=== PATIENT | male | born 1965 | race American Indian/Alaskan Native ===

== ENCOUNTER 2018-02-03 18:36 | Inpatient (IN) | payer OTHER ==
[2018-02-03 19:18] VITALS: BMI 19.1
--- NOTE | 2018-02-03 19:19 | PDOC ---
History of Present Illness <Lori Sanchez - Last Filed: 02/04/18 00:45> - General History Source: Patient, [facility] Records Exam Limitations: Other (poor historian) - History of Present Illness Initial Comments: 02/03/18 19:45 The patient is a 52 year old male with past medical history of diabetes, s/p left AKA, CVA, and depression who arrives to the ED from [facility] after falling out of bed today. The patient is a poor historian and denies any complaints presently. [facility] out of bed. The patient did so today and fell. Subsequently he began complaining of neck pain, but denies any LOC or headache. Patient received dialysis yesterday. <Becca Bustos - Last Filed: 02/04/18 01:48> <Coleman Regalado - Last Filed: 02/04/18 15:59> - General Chief Complaint: Head/Neck problem Stated Complaint: NECK PAIN Past History - Past Medical History Anemia: Yes COPD: No Diabetes: Yes Dialysis: Yes Hypercholesterolemia: Yes Psychiatric Problems: Yes - Suicide/Smoking/Psychosocial Hx Smoking History: Unknown if ever smoked <Lori Sanchez - Last Filed: 02/04/18 00:45> <Becca Bustos - Last Filed: 02/04/18 01:48> <Coleman Regalado - Last Filed: 02/04/18 15:59> - Past Medical History Allergies/Adverse Reactions: Allergies Allergy/AdvReac Type Severity Reaction Status Date / Time No Known Allergies Allergy Verified 02/03/18 20:06 Home Medications: Ambulatory Orders Aspirin 81 mg PO DAILY 02/03/18 Calcium Acetate 1,334 mg PO TID 02/03/18 Ergocalciferol (Vitamin D2) [Vitamin D2] 50,000 unit PO WEEKLY 02/03/18 Escitalopram Oxalate [Lexapro -] 20 mg PO DAILY 02/03/18 Folic Acid 1 mg PO DAILY 02/03/18 Metoprolol Succinate [Toprol Xl] 100 mg PO DAILY 02/03/18 Mirtazapine 15 mg PO DAILY 02/03/18 Pantoprazole Sodium [Protonix] 40 mg PO DAILY 02/03/18 Rosuvastatin [Crestor -] 20 mg PO HS 02/03/18 Thiamine HCl [B-1] 100 mg PO DAILY 02/03/18 Vitamin B Comp W-C [Nephro-Sandra -] 1 tablet PO DAILY 02/03/18 Review of Systems - Review of Systems Able to Perform ROS?: Yes Comments:: 02/03/18 19:45 GENERAL/CONSTITUTIONAL: No fever or chills. No weakness. HEAD, EYES, EARS, NOSE AND THROAT: No change in vision. No ear pain or discharge. No sore throat. CARDIOVASCULAR: No chest pain or shortness of breath. RESPIRATORY: No cough, wheezing, or hemoptysis. GASTROINTESTINAL: No nausea, vomiting, diarrhea or constipation. GENITOURINARY: No dysuria, frequency, or change in urination. MUSCULOSKELETAL: No joint or muscle swelling or pain. No neck or back pain. SKIN: No rash NEUROLOGIC: No headache, vertigo, loss of consciousness, or change in strength/ sensation. ENDOCRINE: No increased thirst. No abnormal weight change. HEMATOLOGIC/LYMPHATIC: No anemia, easy bleeding, or history of blood clots. ALLERGIC/IMMUNOLOGIC: No hives or skin allergy. All Other Systems: Reviewed and Negative <Becca Bustos - Last Filed: 02/04/18 01:48> *Physical Exam - Vital Signs Last Vital Signs Temp Pulse Resp BP Pulse Ox 98.3 F 95 H 18 109/75 100 02/03/18 18:54 02/03/18 18:54 02/03/18 18:54 02/03/18 18:54 02/03/18 18:54 <Lori Sanchez - Last Filed: 02/04/18 00:45> - Vital Signs Last Vital Signs Temp Pulse Resp BP Pulse Ox 98.3 F 95 H 18 109/75 100 02/03/18 18:54 02/03/18 18:54 02/03/18 18:54 02/03/18 18:54 02/03/18 18:54 - Physical Exam Comments: 02/03/18 19:45 GENERAL: Awake, alert, and fully oriented, in no acute distress HEAD: No signs of trauma EYES: PERRLA, EOMI, sclera anicteric, conjunctiva clear ENT: Auricles normal inspection, hearing grossly normal, nares patent, oropharynx clear without exudates. Moist mucosa NECK: Normal ROM, supple, no lymphadenopathy, JVD, or masses LUNGS: Breath sounds equal, clear to auscultation bilaterally. No wheezes, and no crackles HEART: Regular rate and rhythm, normal S1 and S2, no murmurs, rubs or gallops ABDOMEN: Soft, nontender, normoactive bowel sounds. No guarding, no rebound. No masses EXTREMITIES: Fistula in LUE. Left AKA. No pain to RLE. Normal range of motion, no edema. No clubbing or cyanosis. No cords, erythema, or tenderness NEUROLOGICAL: Cranial nerves II through XII grossly intact. Normal speech, normal gait SKIN: Warm, Dry, normal turgor, no rashes or lesions noted. <Becca Bustos - Last Filed: 02/04/18 01:48> - Vital Signs Last Vital Signs Temp Pulse Resp BP Pulse Ox 97.9 F 77 21 89/50 99 02/04/18 14:43 02/04/18 15:15 02/04/18 15:15 02/04/18 15:15 02/04/18 15:15 <Coleman Regalado - Last Filed: 02/04/18 15:59> Heart Score/ECG Review #1 General ECG Interpretation: Normal Rate (901), Normal Intervals, No acute ischemic changes (TWI I, AVL,) Compared to previous ECG there are: Other (no old ekg) <Lori Sanchez - Last Filed: 02/04/18 00:45> ED Treatment Course - LABORATORY CBC & Chemistry Diagram: 02/03/18 21:31 02/03/18 21:21 <Lori Sanchez - Last Filed: 02/04/18 00:45> - LABORATORY CBC & Chemistry Diagram: 02/03/18 21:31 02/03/18 21:21 - RADIOLOGY Radiograph Interpretation: 02/03/18 22:[address] as reviewed by Dr. Martines reports no acute pathology, large chronic left cerebral infarct, small chronic left cerebellar infarct. CSpine CT as reviewed by Dr. Martines reports no fracture, right pleural effusion , probable pulmonary interstitial vascular congestion. <Becca Bustos - Last Filed: 02/04/18 01:48> - LABORATORY CBC & Chemistry Diagram: 02/03/18 21:31 02/04/18 13:45 - ADDITIONAL ORDERS Additional order review: Laboratory Results 02/03/18 13:45 Lactic Acid 3.5 H* 02/03/18 02/03/18 21:31 13:45 RBC 3.67 L 3.65 L MCV 99.0 H 100.4 H MCHC 32.6 32.1 RDW 16.5 H 16.6 H MPV 8.4 8.3 Neutrophils % 58.7 54.2 Lymphocytes % 19.7 D 27.5 Monocytes % 16.8 H 11.9 H Eosinophils % 3.6 5.8 H Basophils % 1.2 0.6 - Medications Given in the ED: ED Medications Discontinued Medications Generic Name Dose Route Start Last Admin Trade Name Freq PRN Reason Stop Dose Admin Aspirin 325 mg 02/04/18 00:43 02/04/18 01:44 Asa - PO 02/04/18 00:44 325 mg ONCE ONE Administration Atropine Sulfate 1 mg 02/04/18 13:27 02/04/18 13:26 Atropine Injection - IVPUSH 02/04/18 13:28 1 mg ONCE ONE Administration Sodium Chloride 500 mls @ 500 mls/hr 02/04/18 13:23 02/04/18 13:20 Normal Saline - IV 02/04/18 14:22 500 mls/hr ASDIR STA Administration Lorazepam 2 mg 02/04/18 13:15 02/04/18 13:17 Ativan Injection - IVPUSH 02/04/18 13:16 2 mg ONCE ONE Administration <Coleman Regalado - Last Filed: 02/04/18 15:59> Medical Decision Making - Medical Decision Making 02/03/18 19:18 52 yo male with h/o DM, prior CVA, ESRD depression, HLD, HTN here from [facility] after fall out of bed. sent for evaluation of neck pain. pt currenlty doesn't c/o of any pain. on exam head atraumatic, no midline cervical spin tenderness. lungs clear heart rrrr. abd soft nt. ext left aka, right hip nt from left hip nt from. arms FROM. alert orietned x 1. plan ct head, cervical spin. will evaluate labs r/o electrolyte abnormality. call [facility] for additional history. 02/03/18 19:29 02/04/18 00:45 pt with abnormal troponin, and abnormal EKG. no old EKG for comparison. <Lori Sanchez - Last Filed: 02/04/18 00:45> - Medical Decision Making 02/04/18 00:21 Microblog sent to [facility]. Awaiting call back. 02/04/18 00:[address] Dai <Becca Bustos - Last Filed: 02/04/18 01:48> - Medical Decision Making 02/04/18 15:59 Dr. Heide Foster was called regarding the patient at 4pm <Coleman Regalado - Last Filed: 02/04/18 15:59> *DC/Admit/Observation/Transfer - Discharge Dispostion Admit: Yes <Lori Sanchez - Last Filed: 02/04/18 00:45> - Attestations Scribe Attestion: 02/03/18 19:50 Documentation prepared by Becca Bustos, acting as medical research assistant for Lori Sanchez MD. <Becca Bustos - Last Filed: 02/04/18 01:48> <Coleman Regalado - Last Filed: 02/04/18 15:59> Diagnosis at time of Disposition: Abnormal EKG
[2018-02-03 21:44] LABS: BASO % 1.2 % (0-2.0); EOS % 3.6 % (0-4.5); HEMATOCRIT 36.3 % (35.4-49); HEMOGLOBIN 11.8 GM/dL (11.7-16.9); LYMPH % 19.7 % (8-40); MCH 32.3 pg (25.7-33.7); MCHC 32.6 g/dl (32.0-35.9); MEAN PLT VOLUME 8.4 fl (7.5-11.1); MONO % 16.8 % (3.8-10.2); NEUT % 58.7 % (42.8-82.8); PLATELET COUNT 236 K/MM3 (134-434); RBC 3.67 M/mm3 (4.00-5.60); RDW 16.5 % (11.9-15.9); WHITE BLOOD COUNT 6.9 K/mm3 (4.0-10.0)
[2018-02-03 22:12] LABS: ALBUMIN 3.5 g/dl (3.4-5.0); ANION GAP 11 (8-16); BLOOD UREA NITROGEN 43 mg/dL (7-18); CALCIUM 9.1 mg/dL (8.5-10.1); CHLORIDE 99 mmol/L (98-107); CO2 27 mmol/L (21-32); CREATININE 5.7 mg/dL (0.7-1.3); GLUCOSE,RANDOM 267 mg/dL (74-106); POTASSIUM 4.4 mmol/L (3.5-5.1); SGOT/AST 22 U/L (15-37); SGPT/ALT 23 U/L (12-78); SODIUM 137 mmol/L (136-145)
[2018-02-03 22:14] LABS: ALK PHOS 97 U/L (45-117); BILIRUBIN,TOTAL 1.1 mg/dL (0.2-1.0); TOT PROT 8.5 g/dl (6.4-8.2)
[2018-02-04] MEDS ORDERED: ASPIRIN 325 MG TABLET PO ONE (00:43)
[2018-02-04] MEDS ORDERED: ASPIRIN 81 MG CHEWABLE TABLETS ONE (01:52)
--- NOTE | 2018-02-04 01:54 | HP ---
CHIEF COMPLAINT: s/p fall OOB PCP: Robert HISTORY OF PRESENT ILLNESS: This is a 52yM with PMH DM, CVA, depression, ESRD on dialysis, anemia, HLD who presented to the ED s/p fall out of bed [facility] the [facility] living. As per [place] documentation, pt was initially c/o neck pain. No complaints of pain anywhere at present. Pt unable to tell me what happened earlier to bring him to the ED. ER course was notable for: (1) CT head unchanged (2) CT c-spine without acute fracture (3) troponin 0.67 Recent Travel: pt denies PAST MEDICAL HISTORY: DM, CVA, depression, ESRD on dialysis, anemia, HLD PAST SURGICAL HISTORY: Left AKA LUE AV graft Social History: Smoking: pt denies current use Alcohol: pt denies current use Drugs: pt denies Family History: mother , DM father , unk Allergies No Known Allergies Allergy (Verified 02/03/18 20:06) HOME MEDICATIONS: 3 Medication Instructions Recorded Aspirin 81 mg PO DAILY 02/03/18 Calcium Acetate 1,334 mg PO TID 02/03/18 Ergocalciferol (Vitamin D2) 50,000 unit PO WEEKLY 02/03/18 [Vitamin D2] Escitalopram Oxalate [Lexapro -] 20 mg PO DAILY 02/03/18 Folic Acid 1 mg PO DAILY 02/03/18 Insulin Aspart [Novolog Flexpen] 02/03/18 Lps 15-30 Liquid 02/03/18 Metoprolol Succinate [Toprol Xl] 100 mg PO DAILY 02/03/18 Mirtazapine 15 mg PO DAILY 02/03/18 Pantoprazole Sodium [Protonix] 40 mg PO DAILY 02/03/18 Rosuvastatin [Crestor -] 20 mg PO HS 02/03/18 Thiamine HCl [B-1] 100 mg PO DAILY 02/03/18 Vitamin B Comp W-C [Nephro-Sandra -] 1 tablet PO DAILY 02/03/18 Zinc Oxide 20% Topical Oint 454 gm NR 02/03/18 REVIEW OF SYSTEMS CONSTITUTIONAL: Absent: fever, chills, diaphoresis, generalized weakness, malaise, loss of appetite, weight change HEENT: Absent: rhinorrhea, nasal congestion, throat pain, throat swelling, difficulty swallowing, mouth swelling, ear pain, eye pain, visual changes CARDIOVASCULAR: Absent: chest pain, syncope, palpitations, irregular heart rate, lightheadedness , peripheral edema RESPIRATORY: Absent: cough, shortness of breath, dyspnea with exertion, orthopnea, wheezing, stridor, hemoptysis GASTROINTESTINAL: Absent: abdominal pain, abdominal distension, nausea, vomiting, diarrhea, constipation, melena, hematochezia GENITOURINARY: Absent: dysuria, frequency, urgency, hesitancy, hematuria, flank pain, genital pain MUSCULOSKELETAL: Present: s/p fall OOB Absent: myalgia, arthralgia, joint swelling, back pain, neck pain SKIN: Absent: rash, itching, pallor HEMATOLOGIC/IMMUNOLOGIC: Absent: easy bleeding, easy bruising, lymphadenopathy, frequent infections ENDOCRINE: Absent: unexplained weight gain, unexplained weight loss, heat intolerance, cold intolerance NEUROLOGIC: Absent: headache, focal weakness or paresthesias, dizziness, unsteady gait, seizure, mental status changes, bladder or bowel incontinence PSYCHIATRIC: Absent: anxiety, depression, suicidal or homicidal ideation, hallucinations. PHYSICAL EXAMINATION Vital Signs - 24 hr 3 02/03/18 18:54 Temperature 98.3 F Pulse Rate 95 H Respiratory 18 Rate Blood Pressure 109/75 O2 Sat by Pulse 100 Oximetry (%) GENERAL: Awake, alert, and oriented to person only, had to be told was in the ED , in no acute distress. HEAD: Normal with no signs of trauma. EYES: Pupils equal, round and reactive to light, extraocular movements intact, sclera anicteric, conjunctiva clear. No lid lag. EARS, NOSE, THROAT: Ears normal, nares patent, oropharynx clear without exudates. Moist mucous membranes. NECK: Normal range of motion, supple without lymphadenopathy, JVD, or masses. LUNGS: Breath sounds equal, clear to auscultation bilaterally. No wheezes, and no crackles. No accessory muscle use. HEART: Regular rate and rhythm, normal S1 and S2 without murmur, rub or gallop. ABDOMEN: Soft, nontender, not distended, normoactive bowel sounds, no guarding, no rebound, no masses. No hepatomegaly or splenomegaly. MUSCULOSKELETAL: Normal range of motion at all joints. No bony deformities or tenderness. No CVA tenderness. UPPER EXTREMITIES: 2+ pulses, warm, well-perfused. No cyanosis. No clubbing. No peripheral edema. LOWER EXTREMITIES: 2+ pulses, warm, well-perfused. No calf tenderness. No peripheral edema. NEUROLOGICAL: Cranial nerves II-XII intact. Normal speech. Gait not observed. PSYCHIATRIC: Cooperative. Good eye contact. Appropriate mood and affect. SKIN: Warm, dry, normal turgor, no rashes or lesions noted, normal capillary refill. Laboratory Results - last 24 hr 3 02/03/18 02/03/18 02/03/18 21:21 21:31 21:31 WBC 6.9 RBC 3.67 L Hgb 11.8 Hct 36.3 MCV 99.0 H MCH 32.3 MCHC 32.6 RDW 16.5 H Plt Count 236 MPV 8.4 Neutrophils % 58.7 Lymphocytes % 19.7 Monocytes % 16.8 H Eosinophils % 3.6 Basophils % 1.2 Sodium 137 Potassium 4.4 Chloride 99 Carbon Dioxide 27 Anion Gap 11 BUN 43 H Creatinine 5.7 H Creat Clearance w eGFR 10.49 Random Glucose 267 H Calcium 9.1 Total Bilirubin 1.1 H AST 22 ALT 23 Alkaline Phosphatase 97 Troponin I 0.67 H* Total Protein 8.5 H Albumin 3.5 ECG Normal sinus rhythm Vent rate 90, QTC 499, prolonged possible Left atrial enlargement Incomplete RBB ST depression lead 1, aVL, ST elevation, Lead v1, aVR TWI lead 1, aVL when compared with old ECG from senior living done on 06/01/17, TWI not new, but more pronounced. MAXIME/D new Radiology Reports CT head noncontrast IMPRESSION: No CT evidence of acute intracranial pathology. Large chronic left cerebral infarct. Small chronic left cerebellar infarct. CT cervical spine, noncontrast IMPRESSION: No fracture is seen. Right pleural effusion. Probable pulmonary interstitial vascular congestion as discussed above. Reported By: Ab Martines MD 02/03/18 2765 ASSESSMENT/PLAN: 52yM with PMH DM, CVA, depression, ESRD on dialysis, anemia, HLD presented to the ED s/p fall. elevated troponin with nonspecific ECG changes - pt denies any chest pain or palpitations - likely incidental finding given ESRD status and not a true indicator of cardiac injury - trend x 2 more - cardiology consult DM - BGM AC/HS with novolog sliding scale, consider addition of levemir if persistently elevated ESRD - cont dialysis as scheduled, PCP to follow in AM DVT PPX - deferred as anticipated LOS less than 48 h FEN - tolerating po - bmp in am - diabetic diet Dispo: pt requires further observation for management of his emergent condition. Visit type - Emergency Visit Emergency Visit: Yes ED Registration Date: 02/03/18 Care time: The patient presented to the Emergency Department on the above date and was hospitalized for further evaluation of their emergent condition. - New Patient This patient is new to me today: Yes Date on this admission: 02/04/18 - Critical Care Critical Care patient: No Hospitalist Screening - Colonoscopy Questionnaire Colonoscopy Questionnaire: Colonoscopy Questionnaire - Patient: 50 - 75 years old and never had a screening colonoscopy: Unknown History of colon or rectal polyps, or CA: Unknown History of IBD, Crohn's disease or UC: Unknown History of abdominal radiation therapy as a child: Unknown - Relative: 1 with colon or rectal CA, or polyps at age 60 or younger: Unknown Colon or rectal CA diagnosed at age 45 or younger: Unknown Multiple relatives with colon or rectal CA: Unknown - Outcome: Screening Result: Negative Screen
[2018-02-04] MEDS: INSULIN SLIDING SCALE (NOVOLOG) 1 VIAL SQ SCH ×4 (07:21→16:43)
[2018-02-04] MEDS ORDERED: INSULIN REGULAR HUMAN 100 UNITS/ML *VIAL ONE (07:31)
[2018-02-04] MEDS ORDERED: INSULIN (NOVOLOG) ASPART 100 UNITS/ML 10ML VIAL ONE (07:31)
[2018-02-04] MEDS: CALCIUM ACETATE 667 MG CAPSULE (FP) PO SCH ×3 (09:30→18:46)
[2018-02-04] MEDS ORDERED: ASPIRIN 81 MG CHEWABLE TABLETS PO SCH (10:00)
[2018-02-04] MEDS ORDERED: [UNRECOGNIZED DRUG - OTHER] PO SCH (10:00)
[2018-02-04] MEDS: ESCITALOPRAM OXALATE 20 MG TABLET (FP) PO SCH (10:22)
[2018-02-04] MEDS: THIAMINE HCL 100 MG TABLET (FP) PO SCH (10:22)
[2018-02-04] MEDS: PANTOPRAZOLE 40 MG TABLET (FP) PO SCH ×2 (10:22→12:04)
[2018-02-04] MEDS: VITAMIN B COMP W-C 1 EA TABLET PO SCH (10:22)
[2018-02-04] MEDS: FOLIC ACID 1 MG TABLET (FP) PO SCH (10:22)
--- NOTE | 2018-02-04 11:13 | CON.CARD ---
Cardiology Consult (text) - Consultation Consultation Note: cc: fall hpi: 52 m hx esrd on hd, dm, aka, cva, hld, htn, [place]. Per nurse [place] pt tried to get out of bed quickly and fell. No loc. No prodrome sxs. No cp, sob, palps, dizzy, loc, pnd, orthopnea, le edema. Pt denies hx of hrt dz. Says he is feeling well and wants to go home now. pmh: per hpi psh: avf social: no tob fam: no premature cad, scd ros: per hpi; no nvd, fever, cough, augustine, gib, hematuria, dysuria meds: Home Medications Medication Instructions Recorded Aspirin 81 mg PO DAILY 02/03/18 Calcium Acetate 1,334 mg PO TID 02/03/18 Ergocalciferol (Vitamin D2) 50,000 unit PO WEEKLY 02/03/18 [Vitamin D2] Escitalopram Oxalate [Lexapro -] 20 mg PO DAILY 02/03/18 Folic Acid 1 mg PO DAILY 02/03/18 Insulin Aspart [Novolog Flexpen] 02/03/18 Lps 15-30 Liquid 02/03/18 Metoprolol Succinate [Toprol Xl] 100 mg PO DAILY 02/03/18 Mirtazapine 15 mg PO DAILY 02/03/18 Pantoprazole Sodium [Protonix] 40 mg PO DAILY 02/03/18 Rosuvastatin [Crestor -] 20 mg PO HS 02/03/18 Thiamine HCl [B-1] 100 mg PO DAILY 02/03/18 Vitamin B Comp W-C [Nephro-Sandra -] 1 tablet PO DAILY 02/03/18 Zinc Oxide 20% Topical Oint 454 gm NR 02/03/18 pe: Vital Signs Period Temp Pulse Resp BP Sys/León Pulse Ox Last 24 Hr 98.1 F-98.3 F 80-95 16-18 109-111/75-81 100-100 nad no jvd rrr s1s2 no mrg cta bl nl eff aaox3 no le e/c/c, aka abd nt nd pos bs no jaundice diaphoresis no carotid bruits Laboratory Last Values WBC 6.9 K/mm3 (4.0-10.0) 02/03/18 21:31 RBC 3.67 M/mm3 (4.00-5.60) L 02/03/18 21:31 Hgb 11.8 GM/dL (11.7-16.9) 02/03/18 21:31 Hct 36.3 % (35.4-49) 02/03/18 21:31 MCV 99.0 fl (80-96) H 02/03/18 21:31 MCH 32.3 pg (25.7-33.7) 02/03/18 21:31 MCHC 32.6 g/dl (32.0-35.9) 02/03/18 21:31 RDW 16.5 % (11.9-15.9) H 02/03/18 21:31 Plt Count 236 K/MM3 (134-434) 02/03/18 21:31 MPV 8.4 fl (7.5-11.1) 02/03/18 21:31 Neutrophils % 58.7 % (42.8-82.8) 02/03/18 21:31 Lymphocytes % 19.7 % (8-40) 02/03/18 21:31 Monocytes % 16.8 % (3.8-10.2) H 02/03/18 21:31 Eosinophils % 3.6 % (0-4.5) 02/03/18 21:31 Basophils % 1.2 % (0-2.0) 02/03/18 21:31 Sodium 137 mmol/L (136-145) 02/03/18 21:21 Potassium 4.4 mmol/L (3.5-5.1) 02/03/18 21:21 Chloride 99 mmol/L (98-107) 02/03/18 21:21 Carbon Dioxide 27 mmol/L (21-32) 02/03/18 21:21 Anion Gap 11 (8-16) 02/03/18 21:21 BUN 43 mg/dL (7-18) H 02/03/18 21:21 Creatinine 5.7 mg/dL (0.7-1.3) H 02/03/18 21:21 Creat Clearance w eGFR 10.49 (>60) 02/03/18 21:21 POC Glucometer 155.97484 UNITS (80-120) 02/04/18 07:19 Random Glucose 267 mg/dL (74-106) H 02/03/18 21:21 Calcium 9.1 mg/dL (8.5-10.1) 02/03/18 21:21 Total Bilirubin 1.1 mg/dL (0.2-1.0) H 02/03/18 21:21 AST 22 U/L (15-37) 02/03/18 21:21 ALT 23 U/L (12-78) 02/03/18 21:21 Alkaline Phosphatase 97 U/L (45-117) 02/03/18 21:21 Creatine Kinase 393 IU/L (39-308) H 02/04/18 04:19 Troponin I 0.61 ng/ml (0.00-0.05) H* 02/04/18 04:19 Total Protein 8.5 g/dl (6.4-8.2) H 02/03/18 21:21 Albumin 3.5 g/dl (3.4-5.0) 02/03/18 21:21 ecg: sr, lvh with repol changes. similar to ecg from 05/2017 except now twis more pronounced a/p: 52 m hx esrd on hd, dm, aka, cva, hld, htn [place]. fall: -mechanical fall, no indication of cardiac etiology pos trop: -trop with minimal elevation and flat trend x2 so far. pt with no cardiac sxs. likely trop related to ESRD, not acs. -ecg similar to prior, possible lvh pattern -would check third set of trop with ckmb/fraction mb->if remains with flat trend then ok to send back to [place] with outpt f/u if pt allows (currently not interested in cardio testing) esrd: -hd per renal, no signs vol overload presently hld: -cont statin htn: -cont home meds
[2018-02-04] MEDS ORDERED: SODIUM CHLORIDE 500 ML IV STA (13:23)
[2018-02-04] MEDS ORDERED: ATROPINE SULFATE 1 MG/10 ML DISP.SYRIN ONE (13:26)
[2018-02-04] MEDS ORDERED: ATROPINE SULFATE 1 MG/10 ML DISP.SYRIN IVPUSH ONE (13:27)
[2018-02-04 13:53] LABS: BASO % 0.6 % (0-2.0); EOS % 5.8 % (0-4.5); HEMATOCRIT 36.7 % (35.4-49); HEMOGLOBIN 11.8 GM/dL (11.7-16.9); LYMPH % 27.5 % (8-40); MCH 32.2 pg (25.7-33.7); MCHC 32.1 g/dl (32.0-35.9); MEAN CELL VOLUME 100.4 fl (80-96); MEAN PLT VOLUME 8.3 fl (7.5-11.1); MONO % 11.9 % (3.8-10.2); NEUT % 54.2 % (42.8-82.8); PLATELET COUNT 225 K/MM3 (134-434); RBC 3.65 M/mm3 (4.00-5.60); RDW 16.6 % (11.9-15.9)
[2018-02-04 13:56] LABS: ARTERIAL BLD GAS O2 SATURATION 97.5 % (90-98.9); ARTERIAL BLOOD GAS BASE EXCESS -4.6 meq/l (-2-2); ARTERIAL BLOOD GAS PCO2 31.6 mmHg (35-45); ARTERIAL BLOOD GAS pH 7.39 (7.35-7.45)
--- NOTE | 2018-02-04 14:32 | EKG ---
Test Reason : Blood Pressure : / mmHG Vent. Rate : 091 BPM Atrial Rate : 091 BPM P-R Int : 210 ms QRS Dur : 100 ms QT Int : 400 ms P-R-T Axes : 059 -13 149 degrees QTc Int : 492 ms SINUS RHYTHM WITH 1ST DEGREE A-V BLOCK WITH OCCASIONAL PREMATURE VENTRICULAR COMPLEXES POSSIBLE LEFT ATRIAL ENLARGEMENT PROLONGED QT ABNORMAL ECG WHEN COMPARED WITH ECG OF 03-FEB-2018 20:50, PREMATURE VENTRICULAR COMPLEXES ARE NOW PRESENT INCOMPLETE RIGHT BUNDLE BRANCH BLOCK IS NO LONGER PRESENT PATIENT SITTING UP IN BED DURING EKG Confirmed by MD Samir, Benjie ([id number]) on 02/04/2018 2:31:32 PM Referred By: Christopher HUYNH Confirmed By:Benjie Dawson MD
--- NOTE | 2018-02-04 14:34 | EKG ---
Test Reason : Blood Pressure : / mmHG Vent. Rate : 090 BPM Atrial Rate : 090 BPM P-R Int : 206 ms QRS Dur : 106 ms QT Int : 408 ms P-R-T Axes : 062 -18 146 degrees QTc Int : 499 ms NORMAL SINUS RHYTHM POSSIBLE LEFT ATRIAL ENLARGEMENT INCOMPLETE RIGHT BUNDLE BRANCH BLOCK MARKED ST ABNORMALITY, POSSIBLE LATERAL SUBENDOCARDIAL INJURY PROLONGED QT ABNORMAL ECG NO PREVIOUS ECGS AVAILABLE Confirmed by MD Samir, Benjie ([id number]) on 02/04/2018 2:34:16 PM Referred By: Confirmed By:Benjie Dawson MD
[2018-02-04 15:29] LABS: ALBUMIN 3.5 g/dl (3.4-5.0); ALK PHOS 88 U/L (45-117); ANION GAP 18 (8-16); BILIRUBIN,TOTAL 0.9 mg/dL (0.2-1.0); BLOOD UREA NITROGEN 55 mg/dL (7-18); CALCIUM 8.8 mg/dL (8.5-10.1); CHLORIDE 101 mmol/L (98-107); CO2 20 mmol/L (21-32); CREATININE 6.3 mg/dL (0.7-1.3); GLUCOSE,RANDOM 167 mg/dL (74-106); POTASSIUM 4.5 mmol/L (3.5-5.1); SGOT/AST 26 U/L (15-37); SGPT/ALT 24 U/L (12-78); SODIUM 139 mmol/L (136-145); TOT PROT 8.3 g/dl (6.4-8.2)
[2018-02-04 16:25] LABS: MAGNESIUM 2.7 mg/dL (1.8-2.4); PHOSPHOROUS 8.2 mg/dL (2.5-4.9)
[2018-02-04 19:37] LABS: EOS % 1.9 % (0-4.5); HEMATOCRIT 37.1 % (35.4-49); HEMOGLOBIN 11.9 GM/dL (11.7-16.9); MCH 32.5 pg (25.7-33.7); MEAN CELL VOLUME 101.4 fl (80-96); MEAN PLT VOLUME 8.5 fl (7.5-11.1); MONO % 15.2 % (3.8-10.2); NEUT % 61.9 % (42.8-82.8); PLATELET COUNT 220 K/MM3 (134-434); RBC 3.66 M/mm3 (4.00-5.60); RDW 16.8 % (11.9-15.9); WHITE BLOOD COUNT 7.4 K/mm3 (4.0-10.0)
[2018-02-04] MEDS ORDERED: ROSUVASTATIN CA 20 MG TABLET (FP) PO SCH (22:00)
[2018-02-04] MEDS ORDERED: MIRTAZAPINE 15 MG TABLET (FP) PO SCH (22:00)
[2018-02-04] MEDS ORDERED: INSULIN SLIDING SCALE (NOVOLOG) 1 VIAL SQ SCH (22:00)
[2018-02-05] MEDS: INSULIN SLIDING SCALE (NOVOLOG) 1 VIAL SQ SCH ×4 (06:02→21:51)
[2018-02-05] MEDS ORDERED: PANTOPRAZOLE SODIUM 40 MG VIAL IVPUSH ONE (07:31)
[2018-02-05] MEDS ORDERED: PANTOPRAZOLE SODIUM 160 MG in DEXTROSE 5%-WATER - 290 ML IVPB SCH ×2 (07:45→19:30)
[2018-02-05] MEDS ORDERED: PANTOPRAZOLE SODIUM 80 MG in SODIUM CHLORIDE 100 ML IVPB SCH ×2 (07:45→19:30)
--- NOTE | 2018-02-05 07:55 | HOSP ---
Physical Examination Vital Signs: Vital Signs Temperature 97.6 F 02/05/18 01:29 Pulse Rate 79 02/05/18 01:29 Respiratory Rate 18 02/05/18 01:29 Blood Pressure 133/57 02/05/18 01:29 O2 Sat by Pulse Oximetry (%) 98 02/04/18 22:00 Labs: CBC, BMP 02/04/18 19:15 02/04/18 13:45 Hospitalist Encounter Assessment: Called to come see patient by primary RN for coffee ground emesis Patient is a 52 year old male from a nursing facility who presents to [facility] for a fall at the [place] and seizures On exam, patient is laying in the bed, actively vomiting dark brown coffee ground emesis, with few episode of projective vomiting Plan: Protonix 40mg ivpush now start on protonix drip NPO stat cbc type and screen 2 units of prbc on hold NGT to protect airway Abdominal xray stat Spoke with Dr. Mills who is recreation coordinator
[2018-02-05 09:15] LABS: BASO % 0.6 % (0-2.0); EOS % 0.5 % (0-4.5); HEMATOCRIT 37.1 % (35.4-49); HEMOGLOBIN 11.8 GM/dL (11.7-16.9); LYMPH % 10.4 % (8-40); MCH 31.8 pg (25.7-33.7); MCHC 31.8 g/dl (32.0-35.9); MEAN CELL VOLUME 100.2 fl (80-96); MEAN PLT VOLUME 8.5 fl (7.5-11.1); MONO % 8.7 % (3.8-10.2); NEUT % 79.8 % (42.8-82.8); PLATELET COUNT 222 K/MM3 (134-434); RBC 3.71 M/mm3 (4.00-5.60); RDW 16.3 % (11.9-15.9); WHITE BLOOD COUNT 7.7 K/mm3 (4.0-10.0)
[2018-02-05] MEDS: ESCITALOPRAM OXALATE 20 MG TABLET (FP) PO SCH (09:56)
[2018-02-05] MEDS: CALCIUM ACETATE 667 MG CAPSULE (FP) PO SCH ×3 (09:56→18:55)
[2018-02-05] MEDS: FOLIC ACID 1 MG TABLET (FP) PO SCH (09:56)
[2018-02-05] MEDS: VITAMIN B COMP W-C 1 EA TABLET PO SCH (09:57)
[2018-02-05] MEDS: PANTOPRAZOLE 40 MG TABLET (FP) PO SCH (09:57)
[2018-02-05] MEDS: THIAMINE HCL 100 MG TABLET (FP) PO SCH (09:57)
--- NOTE | 2018-02-05 10:26 | CON.GI ---
Consult Consult Specialty:: Dr. Mills covering for Dr. Brown Referred by:: Hospitalist service Reason for Consultation:: coffee ground emesis - History of Present Illness Chief Complaint: patient without focal GI complaint History of Present Illness: 52 y/o who presented to the ED s/p fall out of bed at the senior care. Had CT head x 2 on admission that were unrevealing for acute bleed. Called this morning by hospitalist covering him that he had copious projectile coffee ground vomiting this morning. There was no further vomiting when i saw him. He denies any abdominal pain and is a poor historian. He states that he would like to go home today. There was no melena / rectal bleeding reported. An NGT was attempted however he was not cooperative with this. He was noted to have elevated troponins and EKG w/ PVC's 1st degree AV block and prolonged QT. 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 Cardio/Vascular: Yes: HTN, Hyperlipdemia Renal/: Yes: Renal Failure (ESRD on HD) Psych: Yes: Depression Endocrine: Yes: Diabetes Mellitus, Other (Hyperlipidemia) - Past Surgical History Past Surgical History: Yes: Amputation (Left AKA) Additional Surgical History: Denies abdominal surgery but has a RLQ scar - Alcohol/Substance Use Hx Alcohol Use: No (Unclear from chart if alcohol history) - Smoking History Smoking history: Unknown if ever smoked - Social History Usual Living Arrangement: Longterm History of Recent Travel: No Home Medications - Allergies Allergies/Adverse Reactions: Allergies Allergy/AdvReac Type Severity Reaction Status Date / Time No Known Allergies Allergy Verified 02/03/18 20:06 - Home Medications Home Medications: Ambulatory Orders Aspirin 81 mg PO DAILY 02/03/18 Calcium Acetate 1,334 mg PO TID 02/03/18 Ergocalciferol (Vitamin D2) [Vitamin D2] 50,000 unit PO WEEKLY 02/03/18 Escitalopram Oxalate [Lexapro -] 20 mg PO DAILY 02/03/18 Folic Acid 1 mg PO DAILY 02/03/18 Metoprolol Succinate [Toprol Xl] 100 mg PO DAILY 02/03/18 Mirtazapine 15 mg PO DAILY 02/03/18 Pantoprazole Sodium [Protonix] 40 mg PO DAILY 02/03/18 Rosuvastatin [Crestor -] 20 mg PO HS 02/03/18 Thiamine HCl [B-1] 100 mg PO DAILY 02/03/18 Vitamin B Comp W-C [Nephro-Sandra -] 1 tablet PO DAILY 02/03/18 Family Disease History - Family Disease History Family History: Unable to Obtain Review of Systems - Review of Systems Constitutional: denies: Chills Cardiovascular: denies: Chest Pain Gastrointestinal: reports: Nausea, Vomiting. denies: Abdominal Pain, Melena, Rectal Bleeding Physical Exam-GI Vital Signs: Vital Signs Temperature 97.8 F 02/05/18 06:00 Pulse Rate 77 02/05/18 06:00 Respiratory Rate 20 02/05/18 06:00 Blood Pressure 101/66 02/05/18 06:00 O2 Sat by Pulse Oximetry (%) 96 02/05/18 06:00 Constitutional: Yes: Calm Eyes: No: Sclera Icterus Cardiovascular: Yes: Regular Rate and Rhythm (with PVC's) Respiratory: Yes: Diminished (at bases but with poor insp. effort) Gastrointestinal Inspection: Yes: Scars (RLQ scar). No: Distention ...Auscultate: Yes: Normoactive Bowel Sounds ...Palpate: Yes: Soft. No: Guarding, Hepatomegaly, Splenomegaly, Tenderness ( no grimacing upon palpation), Tenderness, Rebound ...Percussion: No: Tympanitic ...Rectal Exam: Yes: Other (Hard light brown stool coming from rectum. rectal exam revealed a fecal impaction with hard, guaiac negative light brown stool. Manual disimpaction attempted however allowed only briefly by patient before he asked for me to stop. Mineral oil enema given by nurse.) Edema: No (No RLE edema + Left AKA) Neurological: Yes: Alert, Confusion Labs: CBC, BMP 02/05/18 08:40 02/04/18 13:45 Hepatic Panel Total Bilirubin 0.9 mg/dL (0.2-1.0) 02/04/18 13:45 AST 26 U/L (15-37) 02/04/18 13:45 ALT 24 U/L (12-78) 02/04/18 13:45 Alkaline Phosphatase 88 U/L (45-117) 02/04/18 13:45 Albumin 3.5 g/dl (3.4-5.0) 02/04/18 13:45 Problem List - Problems (1) Coffee ground vomiting Assessment/Plan: No further vomiting. Suspect vomiting to be related to non primary bleeding event such as fecal retention with impaction along with autonomic dysfunction secondary to diabetes w/ gastroparesis. H/H remains stable and patient hemodynamically stable Advise: Monitoring H/H. repeat in afternoon Protonix 40mg IVPB BID for now AXR: Changed to bedside as I question how cooperative Mr. Ceron will be If AXR fails to reveal obstructive pattern, Trial of clears and start MiraLAX 17g PO BID to treat fecal impaction. Mineral oil enema daily Code(s): K92.0 - HEMATEMESIS
--- NOTE | 2018-02-05 10:45 | PN ---
Progress Note (short form) - Note Progress Note: s: no cp sob palps dizzy o: Vital Signs Period Temp Pulse Resp BP Sys/León Pulse Ox Last 24 Hr 97.6 F-98.6 F 69-82 16-22 89-133/50-89 96-100 nad no jvd rrr s1s2 no mrg cta bl nl eff aaox3 no le e/c/c, aka abd nt nd pos bs no jaundice diaphoresis Current Medications Generic Name Dose Route Start Last Admin Trade Name Freq PRN Reason Stop Dose Admin Aspirin 81 mg 02/04/18 10:00 02/04/18 10:21 Asa - PO Not Given DAILY [facility] Calcium Acetate 1,334 mg 02/04/18 08:00 02/05/18 09:56 Phoslo - PO Not Given TIDCM [facility] Ergocalciferol 50,000 unit 02/04/18 03:15 Drisdol - PO WEEKLY [facility] Escitalopram Oxalate 20 mg 02/04/18 10:00 02/05/18 09:56 Lexapro - PO Not Given DAILY [facility] Folic Acid 1 mg 02/04/18 10:00 02/05/18 09:56 Folic Acid - PO Not Given DAILY [facility] Pantoprazole Sodium 160 mg/ 290 mls @ 14.5 mls/hr 02/05/18 07:45 Dextrose IVPB Q20H [facility] Insulin Aspart 1 vial 02/04/18 22:00 02/04/18 22:40 Novolog Vial Sliding Scale - SQ Not Given HS [facility] Protocol Insulin Aspart 1 vial 02/04/18 07:00 02/05/18 06:02 Novolog Vial Sliding Scale - SQ Not Given TIDAC [facility] Protocol Lorazepam 2 mg 02/04/18 18:29 Ativan Injection - IVPUSH Q6H PRN ANXIETY Metoprolol Succinate 100 mg 02/04/18 10:00 02/05/18 09:57 Toprol Xl - PO Not Given DAILY [facility] Mirtazapine 15 mg 02/04/18 22:00 02/04/18 22:32 Remeron - PO 15 mg HS [facility] Administration Multivit/Ca Carb/B Cmplx/FA/Prenat 1 tablet 02/04/18 10:00 02/05/18 09:57 Nephro-Sandra - PO Not Given DAILY [facility] Non-Formulary Medication 30 ml 02/04/18 10:00 Lps 15-30 Liquid PO BID [facility] Pantoprazole Sodium 40 mg 02/04/18 10:00 02/05/18 09:57 Protonix - PO Not Given DAILY [facility] Rosuvastatin Calcium 20 mg 02/04/18 22:00 02/04/18 22:32 Crestor - PO 20 mg HS [facility] Administration Thiamine HCl 100 mg 02/04/18 10:00 02/05/18 09:57 Vitamin B1 - PO Not Given DAILY [facility] CBC, BMP 02/05/18 08:40 02/04/18 13:45 ecg: sr, lvh with repol changes. similar to ecg from 05/2017 except now twis more pronounced tele: sr a/p: 52 m hx esrd on hd, dm, aka, cva, hld, htn sent from dc after fall. fall: -mechanical fall, no indication of cardiac etiology pos trop: -trop with minimal elevation and flat trend x4 with nl ck. pt with no cardiac sxs. likely trop related to ESRD, not acs. -ecg similar to prior, possible lvh pattern -check echo esrd: -hd per renal, no signs vol overload presently hld: -cont statin htn: -cont home meds hematemesis: -plans per GI
--- NOTE | 2018-02-05 10:52 | PN ---
Progress Note, Physician Chief Complaint: Events noted had 2 episodes of seizures in ER Neurology eval called no further seizures Also had coffee ground vomiting this AM - Current Medication List Current Medications: Active Medications Aspirin (Asa -) 81 mg PO DAILY [facility] Last Admin: 02/04/18 10:21 Dose: Not Given Calcium Acetate (Phoslo -) 1,334 mg PO TIDCM [facility] Last Admin: 02/05/18 09:56 Dose: Not Given Ergocalciferol (Drisdol -) 50,000 unit PO WEEKLY [facility] Escitalopram Oxalate (Lexapro -) 20 mg PO DAILY [facility] Last Admin: 02/05/18 09:56 Dose: Not Given Folic Acid (Folic Acid -) 1 mg PO DAILY [facility] Last Admin: 02/05/18 09:56 Dose: Not Given Pantoprazole Sodium 160 mg/ (Dextrose) 290 mls @ 14.5 mls/hr IVPB Q20H [facility] Insulin Aspart (Novolog Vial Sliding Scale -) 1 vial SQ HS [facility] PRN Reason: Protocol Last Admin: 02/04/18 22:40 Dose: Not Given Insulin Aspart (Novolog Vial Sliding Scale -) 1 vial SQ TIDAC [facility] PRN Reason: Protocol Last Admin: 02/05/18 06:02 Dose: Not Given Lorazepam (Ativan Injection -) 2 mg IVPUSH Q6H PRN PRN Reason: ANXIETY Metoprolol Succinate (Toprol Xl -) 100 mg PO DAILY [facility] Last Admin: 02/05/18 09:57 Dose: Not Given Mirtazapine (Remeron -) 15 mg PO [facility] Last Admin: 02/04/18 22:32 Dose: 15 mg Multivit/Ca Carb/B Cmplx/FA/Prenat (Nephro-Sandra -) 1 tablet PO DAILY [facility] Last Admin: 02/05/18 09:57 Dose: Not Given Non-Formulary Medication (Lps 15-30 Liquid) 30 ml PO BID [facility] Pantoprazole Sodium (Protonix -) 40 mg PO DAILY [facility] Last Admin: 02/05/18 09:57 Dose: Not Given Rosuvastatin Calcium (Crestor -) 20 mg PO HS [facility] Last Admin: 02/04/18 22:32 Dose: 20 mg Thiamine HCl (Vitamin B1 -) 100 mg PO DAILY [facility] Last Admin: 02/05/18 09:57 Dose: Not Given - Objective Vital Signs: Vital Signs Temperature 97.8 F 05/06/18 06:00 Pulse Rate 77 02/05/18 06:00 Respiratory Rate 20 02/05/18 06:00 Blood Pressure 101/66 02/05/18 06:00 O2 Sat by Pulse Oximetry (%) 96 02/05/18 06:00 Constitutional: Yes: No Distress Cardiovascular: Yes: Regular Rate and Rhythm Respiratory: Yes: Diminished Gastrointestinal: Yes: Normal Bowel Sounds, Soft. No: Tenderness Extremities: Yes: Amputation (left AKA) Edema: No Labs: CBC, BMP 02/05/18 08:40 02/04/18 13:45 Problem List - Problems (1) Fall Code(s): W19.XXXA - UNSPECIFIED FALL, INITIAL ENCOUNTER (2) ESRD (end stage renal disease) on dialysis Code(s): N18.6 - END STAGE RENAL DISEASE; Z99.2 - DEPENDENCE ON RENAL DIALYSIS (3) Seizures Code(s): R56.9 - UNSPECIFIED CONVULSIONS (4) Abnormal EKG Code(s): R94.31 - ABNORMAL ELECTROCARDIOGRAM [ECG] [EKG] (5) Coffee ground vomiting Code(s): K92.0 - HEMATEMESIS (6) Elevated troponin Code(s): R74.8 - ABNORMAL LEVELS OF OTHER SERUM ENZYMES Assessment/Plan PLAN S/P fall -- CT head x 2 negative Seizures -- had 2 episodes in ER -- head ct negative -- received Ativan iv -- no further seizures so far -- precautions -- Neurology eval pending -- check EEG Elevated troponins -- flat trend -- Cardiology eval noted Upper GI bleed -- HCT stable -- GI eval appreciated -- likely gastroparesis -- on protonix ESRD on HD -- HD per renal
[2018-02-05] MEDS ORDERED: POLYETHYLENE GLYCOL 3350 119 GM BTL PO SCH (13:30)
[2018-02-05 14:03] LABS: BASO % 1.1 % (0-2.0); EOS % 0.5 % (0-4.5); HEMATOCRIT 34.6 % (35.4-49); HEMOGLOBIN 11.2 GM/dL (11.7-16.9); LYMPH % 16.4 % (8-40); MCHC 32.2 g/dl (32.0-35.9); MEAN CELL VOLUME 99.5 fl (80-96); MEAN PLT VOLUME 8.2 fl (7.5-11.1); MONO % 11.8 % (3.8-10.2); NEUT % 70.2 % (42.8-82.8); PLATELET COUNT 212 K/MM3 (134-434); RBC 3.48 M/mm3 (4.00-5.60); RDW 16.4 % (11.9-15.9); WHITE BLOOD COUNT 8.2 K/mm3 (4.0-10.0)
--- NOTE | 2018-02-05 16:15 | RAPID ---
Physical Examination Vital Signs: Vital Signs Temperature 98.3 F 02/05/18 14:00 Pulse Rate 79 02/05/18 14:00 Respiratory Rate 18 02/05/18 14:00 Blood Pressure 116/49 02/05/18 14:00 O2 Sat by Pulse Oximetry (%) 96 02/05/18 14:00 3:35pm Rapid response called. Responded immediately to patient's bedside. Patient lying supine, eyes closed, not responsive. Breathing with a pulse. No seizure- type activity observed. Within 15 seconds patient awoke and started yelling to leave him alone (his baseline behavior). Vitals: BP 92/53, 96/39 SpO2 84% p37 seen on telemetry corresponding to period of unresponsiveness BGM 145 ECG 3:50 pm: Sinus rhythm @ 75bpm Became increasingly combative with medical intervention. Wrist restraints to protect patient and staff. Ativan 1mg x 1. Earlier today, large amount of coffee ground emesis. About one hour before rapid response, coughed up a blood clot witnessed by RN. 2 IV access cbc, cmp, Mg, lactic acid, troponins x 3 fuentes cultured CXR Two units PRBC ordered earlier on standby Call placed to Dr. Heide Foster, PCP. Called [facility], last HD was last (missed Tuesday session). Call placed to Dr. Cannon. Dr. Magana responded, at bedside. 4:40pm Transferring to ICU. BP 111/66 p75 SpO2 100% NRB Labs: CBC, BMP 02/05/18 13:45 02/04/18 13:45 Critical Care Total Critical Care Time (in minutes): 60 Critical Care Statement: The care of this patient involved high complexity decision making to prevent further life threatening deterioration of the patient 's condition and/or to evaluate & treat vital organ system(s) failure or risk of failure.
[2018-02-05 16:36] LABS: BASO % 0.9 % (0-2.0); EOS % 1.2 % (0-4.5); HEMATOCRIT 35.4 % (35.4-49); HEMOGLOBIN 11.4 GM/dL (11.7-16.9); LYMPH % 19.8 % (8-40); MCH 32.9 pg (25.7-33.7); MCHC 32.2 g/dl (32.0-35.9); MEAN PLT VOLUME 8.6 fl (7.5-11.1); MONO % 11.2 % (3.8-10.2); NEUT % 66.9 % (42.8-82.8); PLATELET COUNT 223 K/MM3 (134-434); RBC 3.47 M/mm3 (4.00-5.60); RDW 16.8 % (11.9-15.9); WHITE BLOOD COUNT 8.1 K/mm3 (4.0-10.0)
[2018-02-05 17:11] LABS: ALBUMIN 3.5 g/dl (3.4-5.0); ANION GAP 19 (8-16); BILIRUBIN,TOTAL 1.2 mg/dL (0.2-1.0); BLOOD UREA NITROGEN 66 mg/dL (7-18); CALCIUM 9.1 mg/dL (8.5-10.1); CHLORIDE 100 mmol/L (98-107); CO2 21 mmol/L (21-32); GLUCOSE,RANDOM 143 mg/dL (74-106); MAGNESIUM 2.9 mg/dL (1.8-2.4); POTASSIUM 4.7 mmol/L (3.5-5.1); SGOT/AST 57 U/L (15-37); SGPT/ALT 57 U/L (12-78); SODIUM 140 mmol/L (136-145); TOT PROT 8.4 g/dl (6.4-8.2)
[2018-02-05 17:17] LABS: ALK PHOS 92 U/L (45-117)
[2018-02-05 17:21] LABS: CREATININE 7.7 mg/dL (0.7-1.3)
[2018-02-05] MEDS ORDERED: SODIUM CHLORIDE 500 ML IV STA (17:46)
--- NOTE | 2018-02-05 18:09 | PN ---
Physical Exam: SUBJECTIVE: Patient seen and examined again in ICU. Patient has observed periods of apnea, bradycardia. PMH SUPPLEMENTED: 1. Per Nito, A&O x 1 at baseline; frequently agitated 2. History of GI bleed in 2017-->mesenteric artery embolization, multiple transfusions ([facility]) 3. History of ETOH 4. Full code status (see dispo below) OBJECTIVE: Vital Signs Period Temp Pulse Resp BP Sys/León Pulse Ox Last 24 Hr 97.6 F-99.0 F 64-92 16-29 92-133/38-79 96-98 Laboratory Results - last 24 hr 02/04/18 02/04/18 02/05/18 19:15 22:35 06:01 WBC 7.4 RBC 3.66 L Hgb 11.9 Hct 37.1 MCV 101.4 H MCH 32.5 MCHC 32.0 RDW 16.8 H Plt Count 220 MPV 8.5 Neutrophils % 61.9 Lymphocytes % 20.0 Monocytes % 15.2 H Eosinophils % 1.9 Basophils % 1.0 Sodium Potassium Chloride Carbon Dioxide Anion Gap BUN Creatinine Creat Clearance w eGFR POC Glucometer 87 106 Random Glucose Lactic Acid Calcium Magnesium Total Bilirubin AST ALT Alkaline Phosphatase Troponin I Total Protein Albumin Blood Type Antibody Screen Crossmatch 02/05/18 02/05/18 02/05/18 08:40 08:40 08:45 WBC 7.7 RBC 3.71 L Hgb 11.8 Hct 37.1 MCV 100.2 H MCH 31.8 MCHC 31.8 L RDW 16.3 H Plt Count 222 MPV 8.5 Neutrophils % 79.8 D Lymphocytes % 10.4 D Monocytes % 8.7 Eosinophils % 0.5 Basophils % 0.6 Sodium Potassium Chloride Carbon Dioxide Anion Gap BUN Creatinine Creat Clearance w eGFR POC Glucometer Random Glucose Lactic Acid Calcium Magnesium Total Bilirubin AST ALT Alkaline Phosphatase Troponin I Total Protein Albumin Blood Type A POSITIVE A POSITIVE Antibody Screen Negative Crossmatch See Detail 02/05/18 02/05/18 02/05/18 12:20 13:45 15:42 WBC 8.2 RBC 3.48 L Hgb 11.2 L Hct 34.6 L MCV 99.5 H MCH 32.0 MCHC 32.2 RDW 16.4 H Plt Count 212 MPV 8.2 Neutrophils % 70.2 Lymphocytes % 16.4 D Monocytes % 11.8 H Eosinophils % 0.5 Basophils % 1.1 Sodium Potassium Chloride Carbon Dioxide Anion Gap BUN Creatinine Creat Clearance w eGFR POC Glucometer 132 145 Random Glucose Lactic Acid Calcium Magnesium Total Bilirubin AST ALT Alkaline Phosphatase Troponin I Total Protein Albumin Blood Type Antibody Screen Crossmatch 02/05/18 02/05/18 02/05/18 16:00 16:00 16:00 WBC 8.1 RBC 3.47 L Hgb 11.4 L Hct 35.4 MCV 102.0 H MCH 32.9 MCHC 32.2 RDW 16.8 H Plt Count 223 MPV 8.6 Neutrophils % 66.9 Lymphocytes % 19.8 D Monocytes % 11.2 H Eosinophils % 1.2 D Basophils % 0.9 Sodium 140 Potassium 4.7 Chloride 100 Carbon Dioxide 21 Anion Gap 19 H BUN 66 H Creatinine 7.7 H* D Creat Clearance w eGFR 7.41 POC Glucometer Random Glucose 143 H Lactic Acid 7.3 H* Calcium 9.1 Magnesium 2.9 H Total Bilirubin 1.2 H D AST 57 H D ALT 57 D Alkaline Phosphatase 92 Troponin I 0.44 H Total Protein 8.4 H Albumin 3.5 Blood Type Antibody Screen Crossmatch Active Medications Generic Name Dose Route Start Last Admin Trade Name Freq PRN Reason Stop Dose Admin Aspirin 81 mg 02/04/18 10:00 02/04/18 10:21 Asa - PO Not Given DAILY [facility] Calcium Acetate 1,334 mg 02/04/18 08:00 02/05/18 12:38 Phoslo - PO Not Given TIDCM [facility] Chlorhexidine Gluconate 1 applic 02/05/18 22:00 Hibiclens For Decolonization - TP HS [facility] Ergocalciferol 50,000 unit 02/11/18 10:00 Drisdol - PO [facility] Escitalopram Oxalate 20 mg 02/04/18 10:00 02/05/18 09:56 Lexapro - PO Not Given DAILY [facility] Folic Acid 1 mg 02/04/18 10:00 02/05/18 09:56 Folic Acid - PO Not Given DAILY [facility] Sodium Chloride 500 mls @ 500 mls/hr 02/05/18 17:46 Normal Saline - IV 02/05/18 18:45 [facility] Insulin Aspart 1 vial 02/04/18 22:00 02/04/18 22:40 Novolog Vial Sliding Scale - SQ Not Given [facility] Protocol Insulin Aspart 1 vial 02/04/18 07:00 02/05/18 16:29 Novolog Vial Sliding Scale - SQ Not Given TIDAC [facility] Protocol Lorazepam 2 mg 02/04/18 18:29 Ativan Injection - IVPUSH Q6H PRN ANXIETY Metoprolol Succinate 100 mg 02/04/18 10:00 02/05/18 09:57 Toprol Xl - PO Not Given DAILY [facility] Mineral Oil 133 ml 02/06/18 10:00 Fleet Mineral Oil Rectal Enema - CA 02/09/18 09:59 DAILY [facility] Mirtazapine 15 mg 02/04/18 22:00 02/04/18 22:32 Remeron - PO 15 mg HS [facility] Administration Multivit/Ca Carb/B Cmplx/FA/Prenat 1 tablet 02/04/18 10:00 02/05/18 09:57 Nephro-Sandra - PO Not Given DAILY [facility] Mupirocin 1 applic 02/05/18 22:00 Bactroban Ointment (For Decolonization) - NS 02/10/18 21:59 BID [facility] Pantoprazole Sodium 40 mg 02/05/18 22:00 Protonix Iv IVPUSH BID [facility] Polyethylene Glycol 17 gm 02/05/18 13:30 02/05/18 16:29 Miralax (For Daily Use) - PO Not Given BID [facility] Rosuvastatin Calcium 20 mg 02/04/18 22:00 02/04/18 22:32 Crestor - PO 20 mg HS [facility] Administration Thiamine HCl 100 mg 02/04/18 10:00 02/05/18 09:57 Vitamin B1 - PO Not Given DAILY [facility] ASSESSMENT/PLAN: Dispo: obtained copy of [facility] from [facility] signed by in July 2017 indicating DNR/DNI; conversation with this evening at 8:47pm in which she said she did not want intubation but did want full cardiac resuscitation including chest compressions and electric shock, these directives communicated to DOTTIE Kwong and Dr. Deepak Buckley by phone. At 9:40pm called back and indicated she wants all measures taken to continue the patient's life. She wants him intubated and cardiac resuscitated. FULL CODE. Visit type - Emergency Visit Emergency Visit: Yes ED Registration Date: 02/04/18 Care time: The patient presented to the Emergency Department on the above date and was hospitalized for further evaluation of their emergent condition. - New Patient This patient is new to me today: Yes Date on this admission: 02/06/18 - Critical Care Critical Care patient: Yes Total Critical Care Time (in minutes): 35 Critical Care Statement: The care of this patient involved high complexity decision making to prevent further life threatening deterioration of the patient 's condition and/or to evaluate & treat vital organ system(s) failure or risk of failure.
[2018-02-05] MEDS ORDERED: INSULIN REGULAR 100 UNITS in SODIUM CHLORIDE 99 ML IVPB SCH (18:45)
[2018-02-05 18:53] LABS: ARTERIAL BLD GAS O2 SATURATION 97.1 % (90-98.9); ARTERIAL BLOOD GAS BASE EXCESS -3.4 meq/l (-2-2); ARTERIAL BLOOD GAS PCO2 32.6 mmHg (35-45); ARTERIAL BLOOD GAS pH 7.41 (7.35-7.45)
[2018-02-05 19:17] LABS: ALLENS TEST POSITIVE
--- NOTE | 2018-02-05 19:56 | CON.NEP ---
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 HTN, DM, Dementia, alcohol abuse h/o hosp in [facility] in 2017 with ams and pulm edema required intubation, dialysis, complicated by mrsa and c diff also s/p gi bleed- egd non duodenal ulcers s/p IR mesenteric arterial embolization to stop bleeding received 6 units prbc in total - 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 Cardio/Vascular: Yes: HTN, Hyperlipdemia Renal/: Yes: Renal Failure (ESRD on HD) Psych: Yes: Depression Endocrine: Yes: Diabetes Mellitus, Other (Hyperlipidemia) - Past Surgical History Past Surgical History: Yes: Amputation (Left AKA) Additional Surgical History: Denies abdominal surgery but has a RLQ scar - Alcohol/Substance Use Hx Alcohol Use: No (Unclear from chart if alcohol history) - Smoking History Smoking history: Unknown if ever smoked - Social History Usual Living Arrangement: Assisted History of Recent Travel: No Home Medications - Allergies Allergies/Adverse Reactions: Allergies Allergy/AdvReac Type Severity Reaction Status Date / Time No Known Allergies Allergy Verified 02/03/18 20:06 - Home Medications Home Medications: Ambulatory Orders Aspirin 81 mg PO DAILY 02/03/18 Calcium Acetate 1,334 mg PO TID 02/03/18 Ergocalciferol (Vitamin D2) [Vitamin D2] 50,000 unit PO WEEKLY 02/03/18 Escitalopram Oxalate [Lexapro -] 20 mg PO DAILY 02/03/18 Folic Acid 1 mg PO DAILY 02/03/18 Metoprolol Succinate [Toprol Xl] 100 mg PO DAILY 02/03/18 Mirtazapine 15 mg PO DAILY 02/03/18 Pantoprazole Sodium [Protonix] 40 mg PO DAILY 02/03/18 Rosuvastatin [Crestor -] 20 mg PO HS 02/03/18 Thiamine HCl [B-1] 100 mg PO DAILY 02/03/18 Vitamin B Comp W-C [Nephro-Sandra -] 1 tablet PO DAILY 02/03/18 Nephrology Consult - Height Height: 5 ft 10 in - Weight Weight: 133 lb 4.8 oz - BMI Body Mass Index (BMI): 19.1 - Lab Results CBC,BMP: CBC, BMP 02/05/18 16:00 02/05/18 16:00 Anion Gap: Anion Gap Anion Gap 19 (8-16) H 02/05/18 16:00 - Physical Examination Vital Signs: Vital Signs Temperature 98.9 F 02/05/18 19:11 Pulse Rate 78 02/05/18 19:11 Respiratory Rate 27 H 02/05/18 19:11 Blood Pressure 118/71 02/05/18 19:11 O2 Sat by Pulse Oximetry (%) 96 02/05/18 14:00 Constitutional: Yes: Anxious Eyes: Yes: WNL, Conjunctiva Clear, EOM Intact HENT: Yes: WNL, Atraumatic, Normocephalic Neck: Yes: WNL, Supple, Trachea Midline Cardiovascular: Yes: S1, S2 Respiratory: Yes: Bradypnea Gastrointestinal: Yes: WNL, Normal Bowel Sounds Access for Hemodialysis: AV Graft Extremities: Yes: Amputation (left leg aka) Edema: No Integumentary: Yes: WNL Neurological: No: Alert, Oriented Assessment/Plan esrd hypotension and depressed mental status after a fall from bed in [place] head ct reported without bleeding lactic acid 7.5 abg sent- no resp acidosis baseline advanced dementia Plan- cover for possible sepsis with vancomycin HD tomorrow vanco levels
[2018-02-05 21:13] LABS: HEMATOCRIT 34.8 % (35.4-49); HEMOGLOBIN 11.4 GM/dL (11.7-16.9); MCH 32.8 pg (25.7-33.7); MCHC 32.9 g/dl (32.0-35.9); MEAN CELL VOLUME 99.6 fl (80-96); MEAN PLT VOLUME 8.6 fl (7.5-11.1); PLATELET COUNT 207 K/MM3 (134-434); RBC 3.49 M/mm3 (4.00-5.60); RDW 16.9 % (11.9-15.9); WHITE BLOOD COUNT 8.9 K/mm3 (4.0-10.0)
[2018-02-05 21:22] LABS: URINE APPEARANCE CLOUDY; URINE BILIRUBIN NEGATIVE (<2.0 mg/dL); URINE COLOR AMBER; URINE GLUCOSE (UA) 1+ (NEGATIVE); URINE KETONE NEGATIVE (NEGATIVE); URINE NITRITE NEGATIVE (NEGATIVE); URINE UROBILINOGEN NEGATIVE mg/dL (0.2-1.0)
[2018-02-05 21:25] LABS: URINE LEUK ESTERASE 2+ (NEGATIVE); URINE PROTEIN 3+ (NEGATIVE)
[2018-02-05 21:26] LABS: EPI CELLS RARE /HPF (FEW); URINE BACTERIA MODERATE /hpf (NONE SEEN); URINE HYALINE CAST 48 /lpf; URINE MUCUS RARE; YEAST MANY
[2018-02-05] MEDS ORDERED: VANCOMYCIN 1 GM PREMIX - 1 GM/200 ML BAG IVPB ONE (21:30)
[2018-02-05] MEDS: MUPIROCIN 2% TOPICAL OINTMENT FOR DECOLONIZATION NS SCH (21:41)
[2018-02-05] MEDS: CHLORHEXIDINE GLUCONATE 4% CLEANSER FOR DECOLONIZATION TP SCH (21:42)
--- NOTE | 2018-02-05 21:58 | CONSULT ---
Consult Consult Specialty:: Pulmonary Critical Care Reason for Consultation:: AMS - History of Present Illness Chief Complaint: AMS, apnea History of Present Illness: Pt is a 52 yo [facility] resident with h/o DM, CVA, ?dementia, ESRD on dialysis, HLD who initially presented to the hospital on 02/03 after a fall at the alf. CT head and spine negative for acute processes. His labs on admission were notable for trop 0.67, cardiology has evaluated the pt and trop elevation was thought to be 2/2 ESRD as opposed to ACS. He was admitted to the floor for further management where he was started on Vanco for possible sepsis. His floor course notable for questionable GI bleed for which he was evaluated by GI. His Hgb has remained stable. Earlier today he was transferred to ICU after an episode of unresponsiveness and apnea for which SPEEDBOAT OPERATOR called. Of note, as per records pt had 2 seizures while in ER. During SPEEDBOAT OPERATOR no seizure activity witnessed. Upon transfer to the ICU pt hemodynamically stable, SpO2 100% on 3l/ min NC. ABG upon transfer 7.41/34/140, Hgb 11.4, Lactate 7.3 Active Medications Chlorhexidine Gluconate (Hibiclens For Decolonization -) 1 applic TP HS PATO Last Admin: 02/05/18 21:42 Dose: 1 applic Insulin Human Regular 100 (units/ Sodium Chloride) 100 mls @ 6.04 mls/hr IVPB TITR PATO; 0.1 UNITS/KG/HR PRN Reason: Protocol Pantoprazole Sodium 160 mg/ (Dextrose) 290 mls @ 14.5 mls/hr IVPB Q20H [facility] Last Admin: 02/05/18 21:42 Dose: Not Given Vancomycin HCl (Vancomycin 1 Gm Premix -) 1 gm in 200 mls @ 133.333 mls/hr IVPB ONCE ONE Stop: 02/05/18 22:59 Last Admin: 02/05/18 21:42 Dose: 133.333 mls/hr Insulin Aspart (Novolog Vial Sliding Scale -) 1 vial SQ HS PATO PRN Reason: Protocol Insulin Aspart (Novolog Vial Sliding Scale -) 1 vial SQ TIDAC PATO PRN Reason: Protocol Lorazepam (Ativan Injection -) 2 mg IVPUSH Q6H PRN PRN Reason: ANXIETY Mupirocin (Bactroban Ointment (For Decolonization) -) 1 applic NS BID [facility] Stop: 02/10/18 21:59 Last Admin: 02/05/18 21:41 Dose: 1 applic - Past Medical History 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 LAB: Yes: CVA Cardio/Vascular: Yes: HTN, Hyperlipdemia Renal/: Yes: Renal Failure (ESRD on HD) Psych: Yes: Depression Endocrine: Yes: Diabetes Mellitus, Other (Hyperlipidemia) - Past Surgical History Past Surgical History: Yes: Amputation (Left AKA) Additional Surgical History: Denies abdominal surgery but has a RLQ scar - Alcohol/Substance Use Hx Alcohol Use: No (Unclear from chart if alcohol history) - Smoking History Smoking history: Unknown if ever smoked - Social History Usual Living Arrangement: Jail History of Recent Travel: No Home Medications - Allergies Allergies/Adverse Reactions: Allergies Allergy/AdvReac Type Severity Reaction Status Date / Time No Known Allergies Allergy Verified 02/03/18 20:06 - Home Medications Home Medications: Ambulatory Orders Aspirin 81 mg PO DAILY 02/03/18 Calcium Acetate 1,334 mg PO TID 02/03/18 Ergocalciferol (Vitamin D2) [Vitamin D2] 50,000 unit PO WEEKLY 02/03/18 Escitalopram Oxalate [Lexapro -] 20 mg PO DAILY 02/03/18 Folic Acid 1 mg PO DAILY 02/03/18 Metoprolol Succinate [Toprol Xl] 100 mg PO DAILY 02/03/18 Mirtazapine 15 mg PO DAILY 02/03/18 Pantoprazole Sodium [Protonix] 40 mg PO DAILY 02/03/18 Rosuvastatin [Crestor -] 20 mg PO HS 02/03/18 Thiamine HCl [B-1] 100 mg PO DAILY 02/03/18 Vitamin B Comp W-C [Nephro-Sandra -] 1 tablet PO DAILY 02/03/18 Physical Exam Vital Signs: Vital Signs Temperature 98.9 F 02/05/18 19:11 Pulse Rate 72 02/05/18 20:09 Respiratory Rate 23 02/05/18 20:09 Blood Pressure 122/76 02/05/18 20:09 O2 Sat by Pulse Oximetry (%) 100 02/05/18 20:05 Cardiovascular: Yes: Regular Rate and Rhythm Respiratory: Yes: CTA Bilaterally Gastrointestinal: Yes: Soft. No: Tenderness Edema: No Neurological: Yes: Other (intermittently agitated, screaming. not following commands) Labs: CBC, BMP 02/05/18 20:56 02/05/18 16:00 Problem List - Problems (1) ESRD (end stage renal disease) on dialysis Code(s): N18.6 - END STAGE RENAL DISEASE; Z99.2 - DEPENDENCE ON RENAL DIALYSIS (2) Seizures Code(s): R56.9 - UNSPECIFIED CONVULSIONS Assessment/Plan AMS, episode of unresponsiveness. C/f Seizures. CT head negative Coffee ground emesis, not likely GIB given stable Hgb ESRD on dialysis Elevated troponin likely in the setting of ESRD Elevated lactate (?in the setting of seizures) -consult neurology -check EEG -ativan prn if seizure activity -nephrology following -dialysis howard -recheck lactate -cont supplemental O2 as needed -maintain large bore IV (PIV G18 L EJ) -cont pantoprazole -continue GOC discussions with (pt DNR/DNI prior to this admission, now reversed ) JOBY Yoo Critical Care time : 45 min
[2018-02-05] MEDS ORDERED: PANTOPRAZOLE SODIUM 40 MG VIAL IVPUSH SCH (22:00)
[2018-02-06] MEDS: INSULIN SLIDING SCALE (NOVOLOG) 1 VIAL SQ SCH ×4 (06:35→21:19)
[2018-02-06 09:07] LABS: ALBUMIN 3.3 g/dl (3.4-5.0); ANION GAP 13 (8-16); BILIRUBIN,TOTAL 0.9 mg/dL (0.2-1.0); BLOOD UREA NITROGEN 69 mg/dL (7-18); CALCIUM 8.7 mg/dL (8.5-10.1); CHLORIDE 102 mmol/L (98-107); CO2 23 mmol/L (21-32); GLUCOSE,RANDOM 151 mg/dL (74-106); MAGNESIUM 2.8 mg/dL (1.8-2.4); POTASSIUM 4.6 mmol/L (3.5-5.1); SGOT/AST 45 U/L (15-37); SGPT/ALT 53 U/L (12-78); SODIUM 138 mmol/L (136-145); TOT PROT 7.9 g/dl (6.4-8.2)
[2018-02-06 09:12] LABS: ALK PHOS 83 U/L (45-117)
[2018-02-06 09:33] LABS: CREATININE 8.1 mg/dL (0.7-1.3)
[2018-02-06 09:52] LABS: PHOSPHOROUS 9.1 mg/dL (2.5-4.9)
[2018-02-06] MEDS: MUPIROCIN 2% TOPICAL OINTMENT FOR DECOLONIZATION NS SCH ×2 (10:00→21:13)
[2018-02-06] MEDS ORDERED: MINERAL OIL ENEMA 133 ML ENEMA PR SCH (10:00)
--- NOTE | 2018-02-06 10:14 | CON.NEURO ---
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: CVA Cardio/Vascular: Yes: HTN, Hyperlipdemia Renal/: Yes: Renal Failure (ESRD on HD) Psych: Yes: Depression Endocrine: Yes: Diabetes Mellitus, Other (Hyperlipidemia) - Past Surgical History Past Surgical History: Yes: Amputation (Left AKA) Additional Surgical History: Denies abdominal surgery but has a RLQ scar - Alcohol/Substance Use Hx Alcohol Use: No (Unclear from chart if alcohol history) - Smoking History Smoking history: Unknown if ever smoked - Social History Usual Living Arrangement: [facility] History of Recent Travel: No Home Medications - Allergies Allergies/Adverse Reactions: Allergies Allergy/AdvReac Type Severity Reaction Status Date / Time No Known Allergies Allergy Verified 02/03/18 20:06 - Home Medications Home Medications: Ambulatory Orders Aspirin 81 mg PO DAILY 02/03/18 Calcium Acetate 1,334 mg PO TID 02/03/18 Ergocalciferol (Vitamin D2) [Vitamin D2] 50,000 unit PO WEEKLY 02/03/18 Escitalopram Oxalate [Lexapro -] 20 mg PO DAILY 02/03/18 Folic Acid 1 mg PO DAILY 02/03/18 Metoprolol Succinate [Toprol Xl] 100 mg PO DAILY 02/03/18 Mirtazapine 15 mg PO DAILY 02/03/18 Pantoprazole Sodium [Protonix] 40 mg PO DAILY 02/03/18 Rosuvastatin [Crestor -] 20 mg PO HS 02/03/18 Thiamine HCl [B-1] 100 mg PO DAILY 02/03/18 Vitamin B Comp W-C [Nephro-Sandra -] 1 tablet PO DAILY 02/03/18 Physical Exam-Neuro Vital Signs: Vital Signs Temperature 98.6 F 02/06/18 10:00 Pulse Rate 76 02/06/18 10:00 Respiratory Rate 18 02/06/18 10:00 Blood Pressure 111/69 02/06/18 10:00 O2 Sat by Pulse Oximetry (%) 100 02/05/18 20:05 Labs: CBC, BMP 02/05/18 20:56 02/06/18 08:20 Assessment/Plan cc Two episode of seizure HPI 52 year old male history of DM, HTN, ESRD, sleep apnea, stroke, Depressiondementia. troytent is [facility] resident came to hospital for fall. His ct head was unremarkable. He is not on any seizure medication and never had seizure. Seizure was describes as eye rolled back and he became unresponsive. I spoke to and she denies that he everh had seizure Yesterday his heart dropped and he became unreponsive and he is in icu now. He also have upper GI bleed while in hospital. Active Medication insulin, mupiorcin pantoprazole vancomycin was discontinued Past Medical History as above SH,FH,ROS reviewed in chart NKDA Neurological Examination Patient is sleeping and occasionally he would shout loudly. he is withdrawing to pain and wincing she is sleepy and had ativan yeserday As per nursing he would wake up and would be cursing and go back to sleep He do have history of Sleep apnea pupils reactiv no face asymmetry moving upper and righ tlower extremity there is left below knee amputaiton ct head is unremarkable Assessment- Two episoode possible seizure, he has risk factor for epileptic seizure, including dementia and stroke Plan -- mri of brain can be done once stable eeg is planned - I suggest to start keppra 250 mg po bid continue supportive treatment Thanking you so much Raleigh Negrete MD
--- NOTE | 2018-02-06 10:40 | EKG ---
Test Reason : Blood Pressure : / mmHG Vent. Rate : 049 BPM Atrial Rate : 070 BPM P-R Int : 000 ms QRS Dur : 096 ms QT Int : 486 ms P-R-T Axes : 015 059 -83 degrees QTc Int : 439 ms SINUS RHYTHM WITH 2ND DEGREE A-V BLOCK (MOBITZ I) WITH 2:1 A-V CONDUCTION ABNORMAL ECG WHEN COMPARED WITH ECG OF 05-FEB-2018 18:16, WITH 2:1 A-V CONDUCTION IS NOW SEEN, CASE D/W NURSE Confirmed by ALYSE LANCASTER MD ([id number]) on 02/06/2018 10:39:56 AM Referred By: [facility] Confirmed By:ALYSE LANCASTER MD
--- NOTE | 2018-02-06 10:51 | PN ---
Progress Note, Physician Chief Complaint: fall History of Present Illness: obtunded, not communicative no cigs - Current Medication List Current Medications: Active Medications Chlorhexidine Gluconate (Hibiclens For Decolonization -) 1 applic TP HS PATO Last Admin: 02/05/18 21:42 Dose: 1 applic Insulin Human Regular 100 (units/ Sodium Chloride) 100 mls @ 6.04 mls/hr IVPB TITR PATO; 0.1 UNITS/KG/HR PRN Reason: Protocol Pantoprazole Sodium 160 mg/ (Dextrose) 290 mls @ 14.5 mls/hr IVPB Q20H PATO Last Admin: 02/05/18 21:42 Dose: Not Given Insulin Aspart (Novolog Vial Sliding Scale -) 1 vial SQ HS PATO PRN Reason: Protocol Last Admin: 02/05/18 21:51 Dose: Not Given Insulin Aspart (Novolog Vial Sliding Scale -) 1 vial SQ TIDAC PAOT PRN Reason: Protocol Last Admin: 02/06/18 06:35 Dose: 2 units Levetiracetam (Keppra -) 250 mg PO BID PATO Lorazepam (Ativan Injection -) 2 mg IVPUSH Q6H PRN PRN Reason: ANXIETY Mupirocin (Bactroban Ointment (For Decolonization) -) 1 applic NS BID PATO Stop: 02/10/18 21:59 Last Admin: 02/05/18 21:41 Dose: 1 applic - Objective Vital Signs: Vital Signs Temperature 98.6 F 02/06/18 10:00 Pulse Rate 76 02/06/18 10:00 Respiratory Rate 18 02/06/18 10:00 Blood Pressure 111/69 02/06/18 10:00 O2 Sat by Pulse Oximetry (%) 100 02/05/18 20:05 Constitutional: Yes: No Distress. No: Diaphoresis Eyes: No: Sclera Icterus HENT: No: Nasal Congestion Cardiovascular: Yes: Regular Rate and Rhythm, S1, S2, Other (PMI non diplaced). No: JVD, Gallop, Murmur Respiratory: Yes: CTA Bilaterally (anteriorly). No: Accessory Muscle Use, Rales , Wheezes Gastrointestinal: Yes: Normal Bowel Sounds, Soft. No: Tenderness Musculoskeletal: Yes: Other (No kyphosis) Extremities: Yes: Cold (RLE) Edema: No (s/p LLE amputation) Integumentary: No: Jaundice Neurological: No: Alert, Oriented (x3), Seizure Psychiatric: No: Agitated Labs: CBC, BMP 02/05/18 20:56 02/06/18 08:20 Assessment/Plan ecg: sr, lvh with repol changes. similar to ecg from 05/2017 except now twis more pronounced tele: NSR. episodes Mobitz 1 second degree AVB, episodes 2:1 AVB a/p: 52 m hx esrd on hd, dm, aka, cva, hld, htn sent from [facility] after [place]. fall: -mechanical fall out of bed in pt who [facility] staff reports has often jumped out of bed in the past heart block (AV block): -episodes of Mobitz 1 second-degree AVB on tele, with episodes of 2:1 likely due to the same etiology (i.e. typically benign). per d/w dr moreno, pt noted to be hypoxic during these episodes. he is also presently obtunded, s/p ativan doses--likely high vagal tone -this would not be indication for PPM -cont tele to r/o high-grade AVB -no sx's suspicious for bradyarrhythmic syncope NSTEMI: -trop initially 0.6--flat trend (0.4-0.6). no ischemic ECG changes, no CV sxs. -likely type II IA (? related to bp changes at time of fall, ? other) -ecg similar to prior, possible lvh pattern -check echo for LV fxn/wall motion -stress testing can be electively considered later, to risk stratify (i.e. ? underlying chronic, stable CAD) esrd: -hd per renal, no signs vol overload presently hld: -cont statin htn: -bp controlled -cont present mgmt hematemesis: -plans per critical care +/- GI
--- NOTE | 2018-02-06 11:44 | PN ---
Physical Exam: SUBJECTIVE: Patient seen and examined at bed side in ICU . was transferred to ICU over weekend due to unresponsive and respiratory failure. no acute events over night. today morning pt was screaming and pulled his peripheral line out. he is AAOx3. pt will have dialysis today. OBJECTIVE: Vital Signs Period Temp Pulse Resp BP Sys/León Pulse Ox Last 24 Hr 98 F-99.0 F 64-79 16-29 92-127/38-86 96-100 GENERAL: AAO3 , sleeping with episode of screaming HEAD: Normal with no signs of trauma. EYES: PERRL, EOMI, sclera anicteric, conjunctiva clear. ENT: Ears normal, nares patent, oropharynx clear without exudates, dry mucous membranes.enlarged avula NECK: Trachea midline, full range of motion, supple. LUNGS: Breath sounds equal, clear to auscultation bilaterally, no wheezes, no crackles, no accessory muscle use. HEART: Regular rate and rhythm, S1, S2 without murmur, rub or gallop.run of AV block at 10 am ABDOMEN: Soft, nontender, nondistended, normoactive bowel sounds, no guarding, no rebound, EXTREMITIES: 2+ pulses, warm, well-perfused, no edema. left AKA NEUROLOGICAL:no focal deficit PSYCH: sleeping with episode of screaming SKIN: Warm, dry, normal turgor, Laboratory Results - last 24 hr 02/05/18 02/05/18 02/05/18 08:40 12:20 13:45 WBC 8.2 RBC 3.48 L Hgb 11.2 L Hct 34.6 L MCV 99.5 H MCH 32.0 MCHC 32.2 RDW 16.4 H Plt Count 212 MPV 8.2 Neutrophils % 70.2 Lymphocytes % 16.4 D Monocytes % 11.8 H Eosinophils % 0.5 Basophils % 1.1 Puncture Site ABG pH ABG pCO2 at Pt Temp ABG pO2 at Pt Temp ABG HCO3 ABG O2 Sat (Measured) ABG O2 Content ABG Base Excess Vidal Test Oxygen Flow Rate Sodium Potassium Chloride Carbon Dioxide Anion Gap BUN Creatinine Creat Clearance w eGFR POC Glucometer 132 Random Glucose Lactic Acid Calcium Phosphorus Magnesium Total Bilirubin AST ALT Alkaline Phosphatase Ammonia Troponin I Total Protein Albumin Urine Color Urine Appearance Urine pH Ur Specific [place] Urine Protein Urine Glucose (UA) Urine Ketones Urine Blood Urine Nitrite Urine Bilirubin Urine Urobilinogen Ur Leukocyte Esterase Urine WBC (Auto) Urine RBC (Auto) Ur Epithelial Cells Urine Bacteria Hyaline Casts Urine Mucus Urine Yeast Stool Occult Blood Salicylates Acetone, Qual Blood Type A POSITIVE Antibody Screen Negative Crossmatch See Detail 02/05/18 02/05/18 02/05/18 15:42 16:00 16:00 WBC 8.1 RBC 3.47 L Hgb 11.4 L Hct 35.4 MCV 102.0 H MCH 32.9 MCHC 32.2 RDW 16.8 H Plt Count 223 MPV 8.6 Neutrophils % 66.9 Lymphocytes % 19.8 D Monocytes % 11.2 H Eosinophils % 1.2 D Basophils % 0.9 Puncture Site ABG pH ABG pCO2 at Pt Temp ABG pO2 at Pt Temp ABG HCO3 ABG O2 Sat (Measured) ABG O2 Content ABG Base Excess Vidal Test Oxygen Flow Rate Sodium 140 Potassium 4.7 Chloride 100 Carbon Dioxide 21 Anion Gap 19 H BUN 66 H Creatinine 7.7 H* D Creat Clearance w eGFR 7.41 POC Glucometer 145 Random Glucose 143 H Lactic Acid Calcium 9.1 Phosphorus Magnesium 2.9 H Total Bilirubin 1.2 H D AST 57 H D ALT 57 D Alkaline Phosphatase 92 Ammonia Troponin I 0.44 H Total Protein 8.4 H Albumin 3.5 Urine Color Urine Appearance Urine pH Ur Specific [place] Urine Protein Urine Glucose (UA) Urine Ketones Urine Blood Urine Nitrite Urine Bilirubin Urine Urobilinogen Ur Leukocyte Esterase Urine WBC (Auto) Urine RBC (Auto) Ur Epithelial Cells Urine Bacteria Hyaline Casts Urine Mucus Urine Yeast Stool Occult Blood Salicylates Acetone, Qual Blood Type Antibody Screen Crossmatch 02/05/18 02/05/18 02/05/18 16:00 18:45 20:40 WBC RBC Hgb Hct MCV MCH MCHC RDW Plt Count MPV Neutrophils % Lymphocytes % Monocytes % Eosinophils % Basophils % Puncture Site Left radial ABG pH 7.41 ABG pCO2 at Pt Temp 32.6 L ABG pO2 at Pt Temp 140.0 H D ABG HCO3 20.1 L ABG O2 Sat (Measured) 97.1 ABG O2 Content 14.7 L ABG Base Excess -3.4 L Vidal Test Positive Oxygen Flow Rate 3 Sodium Potassium Chloride Carbon Dioxide Anion Gap BUN Creatinine Creat Clearance w eGFR POC Glucometer Random Glucose Lactic Acid 7.3 H* Calcium Phosphorus Magnesium Total Bilirubin AST ALT Alkaline Phosphatase Ammonia Troponin I Total Protein Albumin Urine Color Lucy Urine Appearance Cloudy Urine pH 5.0 Ur Specific [place] 1.017 Urine Protein 3+ H Urine Glucose (UA) 1+ H Urine Ketones Negative Urine Blood 1+ H Urine Nitrite Negative Urine Bilirubin Negative Urine Urobilinogen Negative Ur Leukocyte Esterase 2+ H Urine WBC (Auto) 26 Urine RBC (Auto) 2 Ur Epithelial Cells Rare Urine Bacteria Moderate Hyaline Casts 48 Urine Mucus Rare Urine Yeast Many Stool Occult Blood Salicylates Acetone, Qual Blood Type Antibody Screen Crossmatch 02/05/18 02/05/18 02/05/18 20:56 20:56 20:56 WBC RBC Hgb Hct MCV MCH MCHC RDW Plt Count MPV Neutrophils % Lymphocytes % Monocytes % Eosinophils % Basophils % Puncture Site ABG pH ABG pCO2 at Pt Temp ABG pO2 at Pt Temp ABG HCO3 ABG O2 Sat (Measured) ABG O2 Content ABG Base Excess Vidal Test Oxygen Flow Rate Sodium Potassium Chloride Carbon Dioxide Anion Gap BUN Creatinine Creat Clearance w eGFR POC Glucometer Random Glucose Lactic Acid Calcium Phosphorus Magnesium Total Bilirubin AST ALT Alkaline Phosphatase Ammonia 57.44 H Troponin I Total Protein Albumin Urine Color Urine Appearance Urine pH Ur Specific [place] Urine Protein Urine Glucose (UA) Urine Ketones Urine Blood Urine Nitrite Urine Bilirubin Urine Urobilinogen Ur Leukocyte Esterase Urine WBC (Auto) Urine RBC (Auto) Ur Epithelial Cells Urine Bacteria Hyaline Casts Urine Mucus Urine Yeast Stool Occult Blood Salicylates <4.0 Acetone, Qual Positive small 1+ Blood Type Antibody Screen Crossmatch 02/05/18 02/05/18 02/05/18 20:56 20:56 21:50 WBC 8.9 RBC 3.49 L Hgb 11.4 L Hct 34.8 L MCV 99.6 H MCH 32.8 MCHC 32.9 RDW 16.9 H Plt Count 207 MPV 8.6 Neutrophils % Lymphocytes % Monocytes % Eosinophils % Basophils % Puncture Site ABG pH ABG pCO2 at Pt Temp ABG pO2 at Pt Temp ABG HCO3 ABG O2 Sat (Measured) ABG O2 Content ABG Base Excess Vidal Test Oxygen Flow Rate Sodium Potassium Chloride Carbon Dioxide Anion Gap BUN Creatinine Creat Clearance w eGFR POC Glucometer [id number] Random Glucose Lactic Acid 2.4 H* Calcium Phosphorus Magnesium Total Bilirubin AST ALT Alkaline Phosphatase Ammonia Troponin I Total Protein Albumin Urine Color Urine Appearance Urine pH Ur Specific [place] Urine Protein Urine Glucose (UA) Urine Ketones Urine Blood Urine Nitrite Urine Bilirubin Urine Urobilinogen Ur Leukocyte Esterase Urine WBC (Auto) Urine RBC (Auto) Ur Epithelial Cells Urine Bacteria Hyaline Casts Urine Mucus Urine Yeast Stool Occult Blood Salicylates Acetone, Qual Blood Type Antibody Screen Crossmatch 02/05/18 02/06/18 02/06/18 22:25 06:33 08:20 WBC RBC Hgb Hct MCV MCH MCHC RDW Plt Count MPV Neutrophils % Lymphocytes % Monocytes % Eosinophils % Basophils % Puncture Site ABG pH ABG pCO2 at Pt Temp ABG pO2 at Pt Temp ABG HCO3 ABG O2 Sat (Measured) ABG O2 Content ABG Base Excess Vidal Test Oxygen Flow Rate Sodium 138 Potassium 4.6 Chloride 102 Carbon Dioxide 23 Anion Gap 13 BUN 69 H Creatinine 8.1 H* Creat Clearance w eGFR 6.89 POC Glucometer 180.06943 Random Glucose 151 H Lactic Acid Calcium 8.7 Phosphorus 9.1 H* Magnesium 2.8 H Total Bilirubin 0.9 D AST 45 H D ALT 53 Alkaline Phosphatase 83 Ammonia Troponin I Total Protein 7.9 Albumin 3.3 L Urine Color Urine Appearance Urine pH Ur Specific [place] Urine Protein Urine Glucose (UA) Urine Ketones Urine Blood Urine Nitrite Urine Bilirubin Urine Urobilinogen Ur Leukocyte Esterase Urine WBC (Auto) Urine RBC (Auto) Ur Epithelial Cells Urine Bacteria Hyaline Casts Urine Mucus Urine Yeast Stool Occult Blood Negative Salicylates Acetone, Qual Blood Type Antibody Screen Crossmatch 02/06/18 08:20 WBC RBC Hgb Hct MCV MCH MCHC RDW Plt Count MPV Neutrophils % Lymphocytes % Monocytes % Eosinophils % Basophils % Puncture Site ABG pH ABG pCO2 at Pt Temp ABG pO2 at Pt Temp ABG HCO3 ABG O2 Sat (Measured) ABG O2 Content ABG Base Excess Vidal Test Oxygen Flow Rate Sodium Potassium Chloride Carbon Dioxide Anion Gap BUN Creatinine Creat Clearance w eGFR POC Glucometer Random Glucose Lactic Acid 2.9 H* Calcium Phosphorus Magnesium Total Bilirubin AST ALT Alkaline Phosphatase Ammonia Troponin I Total Protein Albumin Urine Color Urine Appearance Urine pH Ur Specific [place] Urine Protein Urine Glucose (UA) Urine Ketones Urine Blood Urine Nitrite Urine Bilirubin Urine Urobilinogen Ur Leukocyte Esterase Urine WBC (Auto) Urine RBC (Auto) Ur Epithelial Cells Urine Bacteria Hyaline Casts Urine Mucus Urine Yeast Stool Occult Blood Salicylates Acetone, Qual Blood Type Antibody Screen Crossmatch Active Medications Generic Name Dose Route Start Last Admin Trade Name Breanna PRN Reason Stop Dose Admin Chlorhexidine Gluconate 1 applic 02/05/18 22:00 02/05/18 21:42 Hibiclens For Decolonization - TP 1 applic HS PATO Administration Insulin Human Regular 100 100 mls @ 6.04 mls/hr 02/05/18 18:45 units/ Sodium Chloride IVPB TITR PATO Protocol 0.1 UNITS/KG/HR Insulin Aspart 1 vial 02/05/18 22:00 02/05/18 21:51 Novolog Vial Sliding Scale - SQ Not Given HS PATO Protocol Insulin Aspart 1 vial 02/06/18 07:00 02/06/18 06:35 Novolog Vial Sliding Scale - SQ 2 units TIDAC PATO Administration Protocol Levetiracetam 250 mg 02/06/18 11:15 Keppra - PO BID PATO Mupirocin 1 applic 02/05/18 22:00 02/05/18 21:41 Bactroban Ointment (For Decolonization) - NS 02/10/18 21:59 1 applic BID PATO Administration CBC, BMP 02/05/18 20:56 02/06/18 08:20 EKG: NSR, LVH similar to EKG from 05/2017 Tele : NSR. episodes Mobitz 1 second degree AVB, episodes 2:1 AVB ASSESSMENT/PLAN: 52 year old male with hx of ESRD on HD , DM, AKA, CVA , HLD, HTN sent to hospital from [place] after fall. # Neuro AMS , episode of unresponsiveness ,acute on chronic * likely 2/2 Ativan and LOU * pt has an episode of agitation and screaming was given Ativan 1 mg over night * he is AAox3 , moving upper and lower ext , no facial asymmetry, * avoid ativan and benzo unless there is seizure activity * aspiration precautions * Will need OSAS workup and treatment * fall precautions * restrain right arm due to episode of agitations and pulled his line out Seizure * had 2 episode of seizure in ED, has risk factors for seizure stroke and dementia * no more seizure was reported * CT head negative for acute pathology * neurology consulted dr Melton who recommend start keppra 250 mg po BID switch to IV due to pt non compliance (spit the meds ) * MRI when stable * EEG is planned # Cardiology heart block AV block * had a run of Mobitz I 2nd degree av block likely 2/2 hypoxia associated with the block likely due to Ativan * cardiology consulted : recommended to continue tele monitor to R/O high degree AV block , no need for PPM for now * No syncope history was reported NSTEMI * presented with elevated trop 0.67 trend to 0.44 likley due to ESRD * no EKG specific changes , possible LVH * denies cp, sob , * follow echocardiogramn for wall motion abnormalities and LVH * stress test as out pt when stable for risk stratification HLD * cont crestor 20 mg po daily HTN * monitor * BP 93/75 today #Renal ESRD on HD * had HD today * monitor H/H * monitor LA levels Elevated LA likely due to seizure activities in ED * monitor LA # GI * H/O coffee ground emesis * denies N/V/D , constipation is improving * H/H stable 11.4/34.8 * GI consulted Dr Dolan * no evidence of active bleeding * monitor H/H in AM * advance diet as tolerated * DC protonix drip and start IV 40 mg daily #Endo DM * BGM * ISS HS and ISS TIDAC * Diabetic diet # FEN * no standing fluids * E: monitor * N: advance diet as tolerated diabetic low NA diet #Proph GI: Protonix 40 mg iv once daily (refuse PO ) DVT: no needed for now , #Dispo * transfer to tele * Full code Visit type - Emergency Visit Emergency Visit: No - New Patient This patient is new to me today: Yes Date on this admission: 02/07/18 - Critical Care Critical Care patient: Yes Total Critical Care Time (in minutes): 45 Critical Care Statement: The care of this patient involved high complexity decision making to prevent further life threatening deterioration of the patient 's condition and/or to evaluate & treat vital organ system(s) failure or risk of failure.
--- NOTE | 2018-02-06 12:25 | PN ---
Teaching Attending Note Name of Resident: Timothy Downs ATTENDING PHYSICIAN STATEMENT I saw and evaluated the patient. I reviewed the resident's note and discussed the case with the resident. I agree with the resident's findings and plan as documented. SUBJECTIVE: Patient seen and examined in the ICU. Agitated, received Ativan overnight. Noted to have loud snoring and desaturation associated bradycardia. No further seizures noted. Intake & Output 02/03/18 02/04/18 02/05/18 02/06/18 23:59 23:59 23:59 23:59 Intake Total 856 Balance 856 Weight 133 lb 133 lb 4.8 oz 133 lb 4.8 oz Last Vital Signs Temp Pulse Resp BP Pulse Ox 98.6 F 76 18 111/69 97 02/06/18 10:00 02/06/18 10:00 02/06/18 10:00 02/06/18 10:00 02/06/18 11:25 Active Medications Chlorhexidine Gluconate (Hibiclens For Decolonization -) 1 applic TP HS [facility]O Last Admin: 02/05/18 21:42 Dose: 1 applic Insulin Human Regular 100 (units/ Sodium Chloride) 100 mls @ 6.04 mls/hr IVPB TITR PATO; 0.1 UNITS/KG/HR PRN Reason: Protocol Insulin Aspart (Novolog Vial Sliding Scale -) 1 vial SQ HS PATO PRN Reason: Protocol Last Admin: 02/05/18 21:51 Dose: Not Given Insulin Aspart (Novolog Vial Sliding Scale -) 1 vial SQ TIDAC PATO PRN Reason: Protocol Last Admin: 02/06/18 06:35 Dose: 2 units Levetiracetam (Keppra -) 250 mg PO BID [facility] Mupirocin (Bactroban Ointment (For Decolonization) -) 1 applic NS BID [facility] Stop: 02/10/18 21:59 Last Admin: 02/05/18 21:41 Dose: 1 applic Gen: Lethargic, but agitated Cardiovascular: Yes: Regular Rate and Rhythm Respiratory: Yes: CTA Bilaterally Gastrointestinal: Yes: Soft. No: Tenderness Edema: No Neurological: Yes: agitated, screaming. not following commands Labs: Laboratory Results - last 24 hr 02/05/18 02/05/18 02/05/18 08:40 12:20 13:45 WBC 8.2 RBC 3.48 L Hgb 11.2 L Hct 34.6 L MCV 99.5 H MCH 32.0 MCHC 32.2 RDW 16.4 H Plt Count 212 MPV 8.2 Neutrophils % 70.2 Lymphocytes % 16.4 D Monocytes % 11.8 H Eosinophils % 0.5 Basophils % 1.1 Puncture Site ABG pH ABG pCO2 at Pt Temp ABG pO2 at Pt Temp ABG HCO3 ABG O2 Sat (Measured) ABG O2 Content ABG Base Excess Vidal Test Oxygen Flow Rate Sodium Potassium Chloride Carbon Dioxide Anion Gap BUN Creatinine Creat Clearance w eGFR POC Glucometer 132 Random Glucose Lactic Acid Calcium Phosphorus Magnesium Total Bilirubin AST ALT Alkaline Phosphatase Ammonia Troponin I Total Protein Albumin Urine Color Urine Appearance Urine pH Ur Specific [place] Urine Protein Urine Glucose (UA) Urine Ketones Urine Blood Urine Nitrite Urine Bilirubin Urine Urobilinogen Ur Leukocyte Esterase Urine WBC (Auto) Urine RBC (Auto) Ur Epithelial Cells Urine Bacteria Hyaline Casts Urine Mucus Urine Yeast Stool Occult Blood Salicylates Acetone, Qual Blood Type A POSITIVE Antibody Screen Negative Crossmatch See Detail 02/05/18 02/05/18 02/05/18 15:42 16:00 16:00 WBC 8.1 RBC 3.47 L Hgb 11.4 L Hct 35.4 MCV 102.0 H MCH 32.9 MCHC 32.2 RDW 16.8 H Plt Count 223 MPV 8.6 Neutrophils % 66.9 Lymphocytes % 19.8 D Monocytes % 11.2 H Eosinophils % 1.2 D Basophils % 0.9 Puncture Site ABG pH ABG pCO2 at Pt Temp ABG pO2 at Pt Temp ABG HCO3 ABG O2 Sat (Measured) ABG O2 Content ABG Base Excess Vidal Test Oxygen Flow Rate Sodium 140 Potassium 4.7 Chloride 100 Carbon Dioxide 21 Anion Gap 19 H BUN 66 H Creatinine 7.7 H* D Creat Clearance w eGFR 7.41 POC Glucometer 145 Random Glucose 143 H Lactic Acid Calcium 9.1 Phosphorus Magnesium 2.9 H Total Bilirubin 1.2 H D AST 57 H D ALT 57 D Alkaline Phosphatase 92 Ammonia Troponin I 0.44 H Total Protein 8.4 H Albumin 3.5 Urine Color Urine Appearance Urine pH Ur Specific [place] Urine Protein Urine Glucose (UA) Urine Ketones Urine Blood Urine Nitrite Urine Bilirubin Urine Urobilinogen Ur Leukocyte Esterase Urine WBC (Auto) Urine RBC (Auto) Ur Epithelial Cells Urine Bacteria Hyaline Casts Urine Mucus Urine Yeast Stool Occult Blood Salicylates Acetone, Qual Blood Type Antibody Screen Crossmatch 02/05/18 02/05/18 02/05/18 16:00 18:45 20:40 WBC RBC Hgb Hct MCV MCH MCHC RDW Plt Count MPV Neutrophils % Lymphocytes % Monocytes % Eosinophils % Basophils % Puncture Site Left radial ABG pH 7.41 ABG pCO2 at Pt Temp 32.6 L ABG pO2 at Pt Temp 140.0 H D ABG HCO3 20.1 L ABG O2 Sat (Measured) 97.1 ABG O2 Content 14.7 L ABG Base Excess -3.4 L Vidal Test Positive Oxygen Flow Rate 3 Sodium Potassium Chloride Carbon Dioxide Anion Gap BUN Creatinine Creat Clearance w eGFR POC Glucometer Random Glucose Lactic Acid 7.3 H* Calcium Phosphorus Magnesium Total Bilirubin AST ALT Alkaline Phosphatase Ammonia Troponin I Total Protein Albumin Urine Color Lucy Urine Appearance Cloudy Urine pH 5.0 Ur Specific [place] 1.017 Urine Protein 3+ H Urine Glucose (UA) 1+ H Urine Ketones Negative Urine Blood 1+ H Urine Nitrite Negative Urine Bilirubin Negative Urine Urobilinogen Negative Ur Leukocyte Esterase 2+ H Urine WBC (Auto) 26 Urine RBC (Auto) 2 Ur Epithelial Cells Rare Urine Bacteria Moderate Hyaline Casts 48 Urine Mucus Rare Urine Yeast Many Stool Occult Blood Salicylates Acetone, Qual Blood Type Antibody Screen Crossmatch 02/05/18 02/05/18 02/05/18 20:56 20:56 20:56 WBC RBC Hgb Hct MCV MCH MCHC RDW Plt Count MPV Neutrophils % Lymphocytes % Monocytes % Eosinophils % Basophils % Puncture Site ABG pH ABG pCO2 at Pt Temp ABG pO2 at Pt Temp ABG HCO3 ABG O2 Sat (Measured) ABG O2 Content ABG Base Excess Vidal Test Oxygen Flow Rate Sodium Potassium Chloride Carbon Dioxide Anion Gap BUN Creatinine Creat Clearance w eGFR POC Glucometer Random Glucose Lactic Acid Calcium Phosphorus Magnesium Total Bilirubin AST ALT Alkaline Phosphatase Ammonia 57.44 H Troponin I Total Protein Albumin Urine Color Urine Appearance Urine pH Ur Specific [place] Urine Protein Urine Glucose (UA) Urine Ketones Urine Blood Urine Nitrite Urine Bilirubin Urine Urobilinogen Ur Leukocyte Esterase Urine WBC (Auto) Urine RBC (Auto) Ur Epithelial Cells Urine Bacteria Hyaline Casts Urine Mucus Urine Yeast Stool Occult Blood Salicylates <4.0 Acetone, Qual Positive small 1+ Blood Type Antibody Screen Crossmatch 02/05/18 02/05/18 02/05/18 20:56 20:56 21:50 WBC 8.9 RBC 3.49 L Hgb 11.4 L Hct 34.8 L MCV 99.6 H MCH 32.8 MCHC 32.9 RDW 16.9 H Plt Count 207 MPV 8.6 Neutrophils % Lymphocytes % Monocytes % Eosinophils % Basophils % Puncture Site ABG pH ABG pCO2 at Pt Temp ABG pO2 at Pt Temp ABG HCO3 ABG O2 Sat (Measured) ABG O2 Content ABG Base Excess Vidal Test Oxygen Flow Rate Sodium Potassium Chloride Carbon Dioxide Anion Gap BUN Creatinine Creat Clearance w eGFR POC Glucometer 157.42308 Random Glucose Lactic Acid 2.4 H* Calcium Phosphorus Magnesium Total Bilirubin AST ALT Alkaline Phosphatase Ammonia Troponin I Total Protein Albumin Urine Color Urine Appearance Urine pH Ur Specific [place] Urine Protein Urine Glucose (UA) Urine Ketones Urine Blood Urine Nitrite Urine Bilirubin Urine Urobilinogen Ur Leukocyte Esterase Urine WBC (Auto) Urine RBC (Auto) Ur Epithelial Cells Urine Bacteria Hyaline Casts Urine Mucus Urine Yeast Stool Occult Blood Salicylates Acetone, Qual Blood Type Antibody Screen Crossmatch 02/05/18 02/06/18 02/06/18 22:25 06:33 08:20 WBC RBC Hgb Hct MCV MCH MCHC RDW Plt Count MPV Neutrophils % Lymphocytes % Monocytes % Eosinophils % Basophils % Puncture Site ABG pH ABG pCO2 at Pt Temp ABG pO2 at Pt Temp ABG HCO3 ABG O2 Sat (Measured) ABG O2 Content ABG Base Excess Vidal Test Oxygen Flow Rate Sodium 138 Potassium 4.6 Chloride 102 Carbon Dioxide 23 Anion Gap 13 BUN 69 H Creatinine 8.1 H* Creat Clearance w eGFR 6.89 POC Glucometer 180.64037 Random Glucose 151 H Lactic Acid Calcium 8.7 Phosphorus 9.1 H* Magnesium 2.8 H Total Bilirubin 0.9 D AST 45 H D ALT 53 Alkaline Phosphatase 83 Ammonia Troponin I Total Protein 7.9 Albumin 3.3 L Urine Color Urine Appearance Urine pH Ur Specific [place] Urine Protein Urine Glucose (UA) Urine Ketones Urine Blood Urine Nitrite Urine Bilirubin Urine Urobilinogen Ur Leukocyte Esterase Urine WBC (Auto) Urine RBC (Auto) Ur Epithelial Cells Urine Bacteria Hyaline Casts Urine Mucus Urine Yeast Stool Occult Blood Negative Salicylates Acetone, Qual Blood Type Antibody Screen Crossmatch 02/06/18 08:20 WBC RBC Hgb Hct MCV MCH MCHC RDW Plt Count MPV Neutrophils % Lymphocytes % Monocytes % Eosinophils % Basophils % Puncture Site ABG pH ABG pCO2 at Pt Temp ABG pO2 at Pt Temp ABG HCO3 ABG O2 Sat (Measured) ABG O2 Content ABG Base Excess Vidal Test Oxygen Flow Rate Sodium Potassium Chloride Carbon Dioxide Anion Gap BUN Creatinine Creat Clearance w eGFR POC Glucometer Random Glucose Lactic Acid 2.9 H* Calcium Phosphorus Magnesium Total Bilirubin AST ALT Alkaline Phosphatase Ammonia Troponin I Total Protein Albumin Urine Color Urine Appearance Urine pH Ur Specific [place] Urine Protein Urine Glucose (UA) Urine Ketones Urine Blood Urine Nitrite Urine Bilirubin Urine Urobilinogen Ur Leukocyte Esterase Urine WBC (Auto) Urine RBC (Auto) Ur Epithelial Cells Urine Bacteria Hyaline Casts Urine Mucus Urine Yeast Stool Occult Blood Salicylates Acetone, Qual Blood Type Antibody Screen Crossmatch Problem List - Problems (1) ESRD (end stage renal disease) on dialysis Code(s): N18.6 - END STAGE RENAL DISEASE; Z99.2 - DEPENDENCE ON RENAL DIALYSIS (2) Seizures Code(s): R56.9 - UNSPECIFIED CONVULSIONS Assessment/Plan AMS, episode of unresponsiveness. Seizures. CT head negative Coffee ground emesis, not likely GIB given stable Hgb ESRD on dialysis Elevated troponin likely in the setting of ESRD Elevated lactate probably in the setting of seizures -neurology consult -EEG -ativan prn if seizure activity -nephrology following -HD per Renal -Supplemental O2 as needed -Daily PPI -Aspiration precautions -Will need OSAS workup/treatment -Cardiac Telemetry monitoring Dr Peralta Critical care time spent in reviewing chart, evaluating patient and formulating plan - 36 minutes.
[2018-02-06] MEDS: levETIRAcetam 250 MG TABLET (FP) PO SCH ×2 (12:29→12:42)
[2018-02-06] MEDS: PANTOPRAZOLE 40 MG TABLET (FP) PO ONE ×2 (12:30→12:43)
--- NOTE | 2018-02-06 12:34 | PN ---
Progress Note (short form) - Note Progress Note: Pt seen/ examined earlier today in icu events noted. chart reviewed periods of agitation. dialysis today no further bleeding started on keppra All consults noted/ appreciated Vital Signs Temp 97.5 F L 02/06/18 18:00 Pulse 77 02/06/18 20:00 Resp 18 02/06/18 20:00 BP 88/64 02/06/18 20:00 Pulse Ox 97 02/06/18 11:25 Intake & Output 02/05/18 02/06/18 02/06/18 23:59 11:59 23:59 Intake Total 756 Balance 756 Weight 133 lb 4.8 oz 133 lb Intake: IVPB 756 Oral 0 Other: Voiding Method Diaper Diaper Diaper # Unmeasured Voids Void 1 1 Bowel Movement Yes Height 5 ft 10 in 5 ft 10 in Body Mass Index (BMI) 19.1 19.1 Active Medications Chlorhexidine Gluconate (Hibiclens For Decolonization -) 1 applic TP HS [facility] Last Admin: 02/05/18 21:42 Dose: 1 applic Insulin Aspart (Novolog Vial Sliding Scale -) 1 vial SQ HS PATO PRN Reason: Protocol Last Admin: 02/05/18 21:51 Dose: Not Given Insulin Aspart (Novolog Vial Sliding Scale -) 1 vial SQ TIDAC [facility] PRN Reason: Protocol Last Admin: 02/06/18 17:07 Dose: Not Given Levetiracetam (Keppra Injection -) 250 mg IVPB BID [facility] Mupirocin (Bactroban Ointment (For Decolonization) -) 1 applic NS BID [facility] Stop: 02/10/18 21:59 Last Admin: 02/06/18 10:00 Dose: 1 applic Pantoprazole Sodium (Protonix Iv) 40 mg IVPUSH DAILY [facility] CBC, BMP 02/05/18 20:56 02/06/18 08:20 Microbiology 02/05/18 16:00 Blood Culture - Preliminary Blood - Peripheral Venous NO GROWTH OBTAINED AFTER 24 HOURS, INCUBATION TO CONTINUE FOR 4 DAYS. 02/05/18 16:25 Blood Culture - Preliminary Blood - Peripheral Venous NO GROWTH OBTAINED AFTER 24 HOURS, INCUBATION TO CONTINUE FOR 4 DAYS. Physical Exam. Constitutional: Yes: No Distress. Cardiovascular: Yes: Regular Rate and Rhythm Respiratory: Yes: Diminished at bases Gastrointestinal: Yes: Normal Bowel Sounds, Soft. No: Tenderness Extremities: Yes: Amputation (left AKA) Edema: No Problem List - Problems (1) Fall Code(s): W19.XXXA - UNSPECIFIED FALL, INITIAL ENCOUNTER (2) ESRD (end stage renal disease) on dialysis Code(s): N18.6 - END STAGE RENAL DISEASE; Z99.2 - DEPENDENCE ON RENAL DIALYSIS (3) Seizures Code(s): R56.9 - UNSPECIFIED CONVULSIONS (4) Abnormal EKG Code(s): R94.31 - ABNORMAL ELECTROCARDIOGRAM [ECG] [EKG] (5) Coffee ground vomiting Code(s): K92.0 - HEMATEMESIS (6) Elevated troponin Code(s): R74.8 - ABNORMAL LEVELS OF OTHER SERUM ENZYMES Assessment/Plan clinically stable continue present care Monitor for bleed Bradycardia - may be contributed by ASleep Apnea I had also discussed With today . HAd dialysis today monitor cbc will follow
--- NOTE | 2018-02-06 12:51 | PN ---
Progress Note, Physician History of Present Illness: No events reported overnight. Had one BM yesterday. Abdomen soft. No stigmata of recent, or ongoing gastrointestinal blood loss. Obstructive sleep apnea. - Current Medication List Current Medications: Active Medications Chlorhexidine Gluconate (Hibiclens For Decolonization -) 1 applic TP HS [facility] Last Admin: 02/05/18 21:42 Dose: 1 applic Insulin Human Regular 100 (units/ Sodium Chloride) 100 mls @ 6.04 mls/hr IVPB TITR PATO; 0.1 UNITS/KG/HR PRN Reason: Protocol Insulin Aspart (Novolog Vial Sliding Scale -) 1 vial SQ HS PATO PRN Reason: Protocol Last Admin: 02/05/18 21:51 Dose: Not Given Insulin Aspart (Novolog Vial Sliding Scale -) 1 vial SQ TIDAC [facility] PRN Reason: Protocol Last Admin: 02/06/18 12:31 Dose: 2 units Levetiracetam (Keppra -) 250 mg PO BID [facility] Last Admin: 02/06/18 12:29 Dose: 250 mg Mupirocin (Bactroban Ointment (For Decolonization) -) 1 applic NS BID [facility] Stop: 02/10/18 21:59 Last Admin: 02/06/18 10:00 Dose: 1 applic - Objective Vital Signs: Vital Signs Temperature 98.6 F 02/06/18 10:00 Pulse Rate 71 02/06/18 12:00 Respiratory Rate 18 02/06/18 12:00 Blood Pressure 113/70 02/06/18 12:00 O2 Sat by Pulse Oximetry (%) 97 02/06/18 11:25 Constitutional: Yes: Calm Eyes: Yes: Conjunctiva Clear HENT: Yes: Atraumatic Neck: Yes: Supple Cardiovascular: Yes: Regular Rate and Rhythm Gastrointestinal: Yes: Normal Bowel Sounds, Soft. No: Melena, Rectal Bleeding, Vomiting Labs: CBC, BMP 02/05/18 20:56 02/06/18 08:20 Laboratory Last Values WBC 8.9 K/mm3 (4.0-10.0) 02/05/18 20:56 RBC 3.49 M/mm3 (4.00-5.60) L 02/05/18 20:56 Hgb 11.4 GM/dL (11.7-16.9) L 02/05/18 20:56 Hct 34.8 % (35.4-49) L 02/05/18 20:56 MCV 99.6 fl (80-96) H 02/05/18 20:56 MCH 32.8 pg (25.7-33.7) 02/05/18 20:56 MCHC 32.9 g/dl (32.0-35.9) 02/05/18 20:56 RDW 16.9 % (11.9-15.9) H 02/05/18 20:56 Plt Count 207 K/MM3 (134-434) 02/05/18 20:56 MPV 8.6 fl (7.5-11.1) 02/05/18 20:56 Neutrophils % 66.9 % (42.8-82.8) 02/05/18 16:00 Lymphocytes % 19.8 % (8-40) D 02/05/18 16:00 Monocytes % 11.2 % (3.8-10.2) H 02/05/18 16:00 Eosinophils % 1.2 % (0-4.5) D 02/05/18 16:00 Basophils % 0.9 % (0-2.0) 02/05/18 16:00 Anticoagulation Therapy No Result Required. 02/04/18 13:50 Puncture Site Left radial 02/05/18 18:45 ABG pH 7.41 (7.35-7.45) 02/05/18 18:45 ABG pCO2 at Pt Temp 32.6 mmHg (35-45) L 02/05/18 18:45 ABG pO2 at Pt Temp 140.0 mmHg (80-100) H D 02/05/18 18:45 ABG HCO3 20.1 meq/L (22-26) L 02/05/18 18:45 ABG O2 Sat (Measured) 97.1 % (90-98.9) 02/05/18 18:45 ABG O2 Content 14.7 % vol (15-22) L 02/05/18 18:45 ABG Base Excess -3.4 meq/l (-2-2) L 02/05/18 18:45 Vidal Test Positive 02/05/18 18:45 O2 Delivery Device No Result Required. 02/04/18 13:50 Oxygen Flow Rate 3 02/05/18 18:45 Vent Mode No Result Required. 02/04/18 13:50 Vent Rate No Result Required. 02/04/18 13:50 Mechanical Rate No Result Required. 02/04/18 13:50 Pressure Support Vent No Result Required. 02/04/18 13:50 Sodium 138 mmol/L (136-145) 02/06/18 08:20 Potassium 4.6 mmol/L (3.5-5.1) 02/06/18 08:20 Chloride 102 mmol/L (98-107) 02/06/18 08:20 Carbon Dioxide 23 mmol/L (21-32) 02/06/18 08:20 Anion Gap 13 (8-16) 02/06/18 08:20 BUN 69 mg/dL (7-18) H 02/06/18 08:20 Creatinine 8.1 mg/dL (0.7-1.3) H* 02/06/18 08:20 Creat Clearance w eGFR 6.89 (>60) 02/06/18 08:20 POC Glucometer 180.46084 UNITS (80-120) 02/06/18 06:33 Random Glucose 151 mg/dL (74-106) H 02/06/18 08:20 Lactic Acid 2.9 mmol/L (0.0-2.0) H* 02/06/18 08:20 Calcium 8.7 mg/dL (8.5-10.1) 02/06/18 08:20 Phosphorus 9.1 mg/dL (2.5-4.9) H* 02/06/18 08:20 Magnesium 2.8 mg/dL (1.8-2.4) H 02/06/18 08:20 Total Bilirubin 0.9 mg/dL (0.2-1.0) D 02/06/18 08:20 AST 45 U/L (15-37) H D 02/06/18 08:20 ALT 53 U/L (12-78) 02/06/18 08:20 Alkaline Phosphatase 83 U/L (45-117) 02/06/18 08:20 Ammonia 57.44 umol/L (11-32) H 02/05/18 20:56 Creatine Kinase 67 IU/L (39-308) 02/04/18 13:45 Creatine Kinase Index 0.7 % (0.0-5.0) 02/04/18 04:19 CK-MB (CK-2) 2.995 ng/mL (0.5-3.6) 02/04/18 04:19 Troponin I 0.44 ng/ml (0.00-0.05) H 02/05/18 16:00 Total Protein 7.9 g/dl (6.4-8.2) 02/06/18 08:20 Albumin 3.3 g/dl (3.4-5.0) L 02/06/18 08:20 Urine Color Lucy 02/05/18 20:40 Urine Appearance Cloudy 02/05/18 20:40 Urine pH 5.0 (5.0-8.0) 02/05/18 20:40 Ur Specific [place] 1.017 (1.001-1.035) 02/05/18 20:40 Urine Protein 3+ (NEGATIVE) H 02/05/18 20:40 Urine Glucose (UA) 1+ (NEGATIVE) H 02/05/18 20:40 Urine Ketones Negative (NEGATIVE) 02/05/18 20:40 Urine Blood 1+ (NEGATIVE) H 02/05/18 20:40 Urine Nitrite Negative (NEGATIVE) 02/05/18 20:40 Urine Bilirubin Negative (<2.0 mg/dL) 02/05/18 20:40 Urine Urobilinogen Negative mg/dL (0.2-1.0) 02/05/18 20:40 Ur Leukocyte Esterase 2+ (NEGATIVE) H 02/05/18 20:40 Urine WBC (Auto) 26 /hpf (3-5) 02/05/18 20:40 Urine RBC (Auto) 2 /hpf (0-3) 02/05/18 20:40 Ur Epithelial Cells Rare /HPF (FEW) 02/05/18 20:40 Urine Bacteria Moderate /hpf (NONE SEEN) 02/05/18 20:40 Hyaline Casts 48 /lpf 02/05/18 20:40 Urine Mucus Rare 02/05/18 20:40 Urine Yeast Many 02/05/18 20:40 Stool Occult Blood Negative (NEGATIVE) 02/05/18 22:25 Salicylates <4.0 mg/dL 02/05/18 20:56 Acetone, Qual Positive small 1+ (NEGATIVE) 02/05/18 20:56 Blood Type A POSITIVE 02/05/18 08:45 Antibody Screen Negative 02/05/18 08:40 Crossmatch See Detail 02/05/18 08:40 Problem List - Problems (1) Vomiting Code(s): R11.10 - VOMITING, UNSPECIFIED (2) Constipation Code(s): K59.00 - CONSTIPATION, UNSPECIFIED Assessment/Plan No stigmata of recent, or ongoing gastrointestinal blood loss. Constipation appears to be improving. No longer vomiting. Recommend stopping IV PPI. Advance diet. Risk of aspiration. CBC in a.m. Close monitoring.
--- NOTE | 2018-02-06 13:56 | PN ---
Progress Note, Physician History of Present Illness: Pt seen and examined at bedside. He is in the ICU. Pt is currently getting HD. He has been combative and unable to give much history. - Current Medication List Current Medications: Active Medications Chlorhexidine Gluconate (Hibiclens For Decolonization -) 1 applic TP HS [facility] Last Admin: 02/05/18 21:42 Dose: 1 applic Insulin Human Regular 100 (units/ Sodium Chloride) 100 mls @ 6.04 mls/hr IVPB TITR [facility]; 0.1 UNITS/KG/HR PRN Reason: Protocol Insulin Aspart (Novolog Vial Sliding Scale -) 1 vial SQ HS [facility] PRN Reason: Protocol Last Admin: 02/05/18 21:51 Dose: Not Given Insulin Aspart (Novolog Vial Sliding Scale -) 1 vial SQ TIDAC [facility] PRN Reason: Protocol Last Admin: 02/06/18 12:31 Dose: 2 units Levetiracetam (Keppra -) 250 mg PO BID [facility] Last Admin: 02/06/18 12:42 Dose: Not Given Mupirocin (Bactroban Ointment (For Decolonization) -) 1 applic NS BID [facility] Stop: 02/10/18 21:59 Last Admin: 02/06/18 10:00 Dose: 1 applic - Objective Vital Signs: Vital Signs Temperature 98.6 F 02/06/18 10:00 Pulse Rate 74 02/06/18 13:31 Respiratory Rate 18 02/06/18 13:31 Blood Pressure 94/57 02/06/18 13:31 O2 Sat by Pulse Oximetry (%) 97 02/06/18 11:25 Constitutional: Yes: Anxious Eyes: Yes: Conjunctiva Clear Cardiovascular: Yes: S1, S2 Respiratory: Yes: On Venti-Mask Gastrointestinal: Yes: Soft Genitourinary: Yes: Incontinence Musculoskeletal: Yes: Other (left AKA) Edema: No Neurological: Yes: Lethargy Labs: CBC, BMP 02/05/18 20:56 02/06/18 08:20 - ....Imaging Chest X-ray: Report Reviewed Cat Scan: Report Reviewed (ct head report reviewed) Problem List - Problems (1) ESRD (end stage renal disease) on dialysis Code(s): N18.6 - END STAGE RENAL DISEASE; Z99.2 - DEPENDENCE ON RENAL DIALYSIS (2) Seizures Code(s): R56.9 - UNSPECIFIED CONVULSIONS Assessment/Plan Current Medications Generic Name Dose Route Start Last Admin Trade Name Breanna PRN Reason Stop Dose Admin Chlorhexidine Gluconate 1 applic 02/05/18 22:00 02/05/18 21:42 Hibiclens For Decolonization - TP 1 applic HS [facility] Administration Insulin Human Regular 100 100 mls @ 6.04 mls/hr 02/05/18 18:45 units/ Sodium Chloride IVPB TITR [facility] Protocol 0.1 UNITS/KG/HR Insulin Aspart 1 vial 02/05/18 22:00 02/05/18 21:51 Novolog Vial Sliding Scale - SQ Not Given HS [facility] Protocol Insulin Aspart 1 vial 02/06/18 07:00 02/06/18 12:31 Novolog Vial Sliding Scale - SQ 2 units TIDAC PATO Administration Protocol Levetiracetam 250 mg 02/06/18 11:15 02/06/18 12:42 Keppra - PO Not Given BID [facility] Mupirocin 1 applic 02/05/18 22:00 02/06/18 10:00 Bactroban Ointment (For Decolonization) - NS 02/10/18 21:59 1 applic BID [facility] Administration Impression 1. ESRD 2. seizure 3. coffee ground emesis 4. lactic acidosis 5. altered mental status Plan - HD today - monitor hg - called HD unit, pt on 3:30 2 k bath left arm aav fistula aranesp 25 on Saturdays, venofer 50 weekly TTS schedule - monitor lactic acid levels - neuro eval - monitor hg - discussed with ICU team - pt off HD schedule this week
--- NOTE | 2018-02-06 18:26 | EKG ---
Test Reason : Blood Pressure : / mmHG Vent. Rate : 075 BPM Atrial Rate : 075 BPM P-R Int : 216 ms QRS Dur : 100 ms QT Int : 450 ms P-R-T Axes : 066 -06 143 degrees QTc Int : 502 ms SINUS RHYTHM WITH 1ST DEGREE A-V BLOCK PROLONGED QT ABNORMAL ECG WHEN COMPARED WITH ECG OF 05-FEB-2018 15:48, QT HAS LENGTHENED Confirmed by SEDA TORIBIO MD ([id number]) on 02/06/2018 6:25:48 PM Referred By: Confirmed By:SEDA TORIBIO MD
[2018-02-06] MEDS ORDERED: levETIRAcetam 500 MG/5 ML INJECTION VIAL IVPB ONE ×2 (18:47→18:48)
[2018-02-06] MEDS: CHLORHEXIDINE GLUCONATE 4% CLEANSER FOR DECOLONIZATION TP SCH (21:13)
[2018-02-06] MEDS: levETIRAcetam 500 MG/5 ML INJECTION VIAL IVPB SCH (21:13)
[2018-02-07] MEDS: INSULIN SLIDING SCALE (NOVOLOG) 1 VIAL SQ SCH ×4 (06:27→21:35)
[2018-02-07 09:16] LABS: EOS % 4.9 % (0-4.5); HEMOGLOBIN 11.7 GM/dL (11.7-16.9); LYMPH % 23.6 % (8-40); MCH 32.4 pg (25.7-33.7); MCHC 32.5 g/dl (32.0-35.9); MEAN CELL VOLUME 99.6 fl (80-96); MEAN PLT VOLUME 8.3 fl (7.5-11.1); MONO % 15.6 % (3.8-10.2); NEUT % 54.9 % (42.8-82.8); PLATELET COUNT 217 K/MM3 (134-434); RBC 3.61 M/mm3 (4.00-5.60); RDW 16.4 % (11.9-15.9); WHITE BLOOD COUNT 6.4 K/mm3 (4.0-10.0)
[2018-02-07 09:52] LABS: ALBUMIN 3.4 g/dl (3.4-5.0); ANION GAP 12 (8-16); BLOOD UREA NITROGEN 27 mg/dL (7-18); CALCIUM 8.6 mg/dL (8.5-10.1); CHLORIDE 103 mmol/L (98-107); CO2 29 mmol/L (21-32); CREATININE 4.7 mg/dL (0.7-1.3); GLUCOSE,RANDOM 72 mg/dL (74-106); MAGNESIUM 2.3 mg/dL (1.8-2.4); PHOSPHOROUS 4.7 mg/dL (2.5-4.9); POTASSIUM 3.6 mmol/L (3.5-5.1); SGOT/AST 36 U/L (15-37); SGPT/ALT 43 U/L (12-78); SODIUM 144 mmol/L (136-145)
[2018-02-07 09:54] LABS: ALK PHOS 90 U/L (45-117); BILIRUBIN,TOTAL 1.1 mg/dL (0.2-1.0); TOT PROT 8.2 g/dl (6.4-8.2)
[2018-02-07] MEDS: levETIRAcetam 500 MG/5 ML INJECTION VIAL IVPB SCH ×2 (10:23→21:28)
[2018-02-07] MEDS: MUPIROCIN 2% TOPICAL OINTMENT FOR DECOLONIZATION NS SCH ×2 (10:24→21:29)
[2018-02-07] MEDS: PANTOPRAZOLE SODIUM 40 MG VIAL IVPUSH SCH (10:24)
--- NOTE | 2018-02-07 10:32 | PN ---
Progress Note, Physician Chief Complaint: no episodes of seizures, no GI bleed tolerated po diet - Current Medication List Current Medications: Active Medications Chlorhexidine Gluconate (Hibiclens For Decolonization -) 1 applic TP HS [facility] Last Admin: 02/06/18 21:13 Dose: 1 applic Insulin Aspart (Novolog Vial Sliding Scale -) 1 vial SQ HS [facility] PRN Reason: Protocol Last Admin: 02/06/18 21:19 Dose: 2 units Insulin Aspart (Novolog Vial Sliding Scale -) 1 vial SQ TIDAC [facility] PRN Reason: Protocol Last Admin: 02/07/18 06:27 Dose: Not Given Levetiracetam (Keppra Injection -) 250 mg IVPB BID [facility] Last Admin: 02/07/18 10:23 Dose: 250 mg Mupirocin (Bactroban Ointment (For Decolonization) -) 1 applic NS BID [facility] Stop: 02/10/18 21:59 Last Admin: 02/07/18 10:24 Dose: 1 applic Pantoprazole Sodium (Protonix Iv) 40 mg IVPUSH DAILY [facility] Last Admin: 02/07/18 10:24 Dose: 40 mg - Objective Vital Signs: Vital Signs Temperature 98.2 F 02/07/18 10:00 Pulse Rate 82 02/07/18 10:00 Respiratory Rate 18 02/07/18 10:00 Blood Pressure 105/74 02/07/18 10:00 O2 Sat by Pulse Oximetry (%) 100 02/07/18 05:00 Constitutional: Yes: No Distress Cardiovascular: Yes: Regular Rate and Rhythm, Murmur Respiratory: Yes: Diminished Gastrointestinal: Yes: Normal Bowel Sounds, Soft. No: Tenderness Edema: No Labs: CBC, BMP 02/07/18 08:58 02/07/18 08:58 Problem List - Problems (1) Fall Code(s): W19.XXXA - UNSPECIFIED FALL, INITIAL ENCOUNTER (2) ESRD (end stage renal disease) on dialysis Code(s): N18.6 - END STAGE RENAL DISEASE; Z99.2 - DEPENDENCE ON RENAL DIALYSIS (3) Seizures Code(s): R56.9 - UNSPECIFIED CONVULSIONS (4) Abnormal EKG Code(s): R94.31 - ABNORMAL ELECTROCARDIOGRAM [ECG] [EKG] (5) Coffee ground vomiting Code(s): K92.0 - HEMATEMESIS (6) Elevated troponin Code(s): R74.8 - ABNORMAL LEVELS OF OTHER SERUM ENZYMES
--- NOTE | 2018-02-07 10:57 | DS ---
Physical Examination Vital Signs: Vital Signs Temperature 98.2 F 02/07/18 10:00 Pulse Rate 82 02/07/18 10:00 Respiratory Rate 18 02/07/18 10:00 Blood Pressure 105/74 02/07/18 10:00 O2 Sat by Pulse Oximetry (%) 100 02/07/18 05:00 Constitutional: Yes: No Distress Cardiovascular: Yes: Regular Rate and Rhythm Respiratory: Yes: Diminished Gastrointestinal: Yes: Normal Bowel Sounds, Soft. No: Tenderness, Epigastrium Extremities: Yes: Other (AKA left) Edema: No Labs: CBC, BMP 02/07/18 08:58 02/07/18 08:58 Discharge Summary Reason For Visit: ABNORMAL ELECTROCARDIOGRAPHY Current Active Problems Abnormal EKG (Acute) Coffee ground vomiting (Acute) Constipation (Acute) ESRD (end stage renal disease) on dialysis (Acute) Elevated troponin (Acute) Fall (Acute) Seizures (Acute) Vomiting (Acute) Hospital Course: Admitted for fall in [place]-- CT head x 2 -- negative for bleed and any acute pathology Course complicated by seizures in the hospital-- seen by Neurology-- started on Keppra BID Pt had no further seizures. Also had an episode of coffee ground vomiting-- seen by GI-- he had stable Hb /HCT throughout stay -- no further intervention-- had constipation which was relieved. Better with IV protonix. had an episode of unresponsiveness- likley due to Ativan -- now at baseline Had dialysis in hospital without any issues. No signs and symptoms of sepsis. blood cultures were negative Pt clinically better- at baseline Pt stable for dc back to [place] Condition: Improved - Instructions Referrals: ON STAFF,NOT [Primary Care Provider] - Disposition: ASSISTED FACILITY - Home Medications Comprehensive Discharge Medication List: Ambulatory Orders Aspirin 81 mg PO DAILY 02/03/18 Calcium Acetate 1,334 mg PO TID 02/03/18 Ergocalciferol (Vitamin D2) [Vitamin D2] 50,000 unit PO WEEKLY 02/03/18 Escitalopram Oxalate [Lexapro -] 20 mg PO DAILY 02/03/18 Folic Acid 1 mg PO DAILY 02/03/18 Metoprolol Succinate [Toprol Xl] 100 mg PO DAILY 02/03/18 Mirtazapine 15 mg PO DAILY 02/03/18 Pantoprazole Sodium [Protonix] 40 mg PO DAILY 02/03/18 Rosuvastatin [Crestor -] 20 mg PO HS 02/03/18 Thiamine HCl [B-1] 100 mg PO DAILY 02/03/18 Vitamin B Comp W-C [Nephro-Sandra -] 1 tablet PO DAILY 02/03/18
--- NOTE | 2018-02-07 11:51 | PN ---
Teaching Attending Note Name of Resident: Timothy Downs ATTENDING PHYSICIAN STATEMENT I saw and evaluated the patient. I reviewed the resident's note and discussed the case with the resident. I agree with the resident's findings and plan as documented. SUBJECTIVE: Patient seen and examined in the ICU. Still slightly agitated, but more interactive today. No further seizures noted. Intake & Output 02/04/18 02/05/18 02/06/18 02/07/18 23:59 23:59 23:59 23:59 Intake Total 856 Balance 856 Weight 133 lb 4.8 oz 133 lb 4.8 oz 133 lb Last Vital Signs Temp Pulse Resp BP Pulse Ox 98.2 F 82 18 105/74 97 02/07/18 10:00 02/07/18 10:00 02/07/18 10:00 02/07/18 10:00 02/07/18 11:04 Active Medications Chlorhexidine Gluconate (Hibiclens For Decolonization -) 1 applic TP HS [facility] Last Admin: 02/06/18 21:13 Dose: 1 applic Insulin Aspart (Novolog Vial Sliding Scale -) 1 vial SQ HS [facility]O PRN Reason: Protocol Last Admin: 02/06/18 21:19 Dose: 2 units Insulin Aspart (Novolog Vial Sliding Scale -) 1 vial SQ TIDAC [facility]O PRN Reason: Protocol Last Admin: 02/07/18 06:27 Dose: Not Given Levetiracetam (Keppra Injection -) 250 mg IVPB BID [facility] Last Admin: 02/07/18 10:23 Dose: 250 mg Mupirocin (Bactroban Ointment (For Decolonization) -) 1 applic NS BID [facility] Stop: 02/10/18 21:59 Last Admin: 02/07/18 10:24 Dose: 1 applic Pantoprazole Sodium (Protonix Iv) 40 mg IVPUSH DAILY [facility] Last Admin: 02/07/18 10:24 Dose: 40 mg Gen: Awake and interactive, NAD on RA Cardiovascular: Yes: Regular Rate and Rhythm Respiratory: Yes: CTA Bilaterally Gastrointestinal: Yes: Soft. No: Tenderness Edema: No Neurological: Yes: non-focal Labs: Laboratory Results - last 24 hr 02/05/18 02/05/18 02/06/18 08:40 18:44 12:04 WBC RBC Hgb Hct MCV MCH MCHC RDW Plt Count MPV Neutrophils % Lymphocytes % Monocytes % Eosinophils % Basophils % Sodium Potassium Chloride Carbon Dioxide Anion Gap BUN Creatinine Creat Clearance w eGFR POC Glucometer 171.21509 161.80148 Random Glucose Lactic Acid Calcium Phosphorus Magnesium Total Bilirubin AST ALT Alkaline Phosphatase Total Protein Albumin Random Vancomycin Hepatitis Be Antigen Crossmatch See Detail 02/06/18 02/06/18 02/06/18 12:30 16:57 21:18 WBC RBC Hgb Hct MCV MCH MCHC RDW Plt Count MPV Neutrophils % Lymphocytes % Monocytes % Eosinophils % Basophils % Sodium Potassium Chloride Carbon Dioxide Anion Gap BUN Creatinine Creat Clearance w eGFR POC Glucometer 148.09462 189.13724 Random Glucose Lactic Acid Calcium Phosphorus Magnesium Total Bilirubin AST ALT Alkaline Phosphatase Total Protein Albumin Random Vancomycin Hepatitis Be Antigen Negative Crossmatch 02/07/18 02/07/18 02/07/18 06:27 08:58 08:58 WBC 6.4 RBC 3.61 L Hgb 11.7 Hct 36.0 MCV 99.6 H MCH 32.4 MCHC 32.5 RDW 16.4 H Plt Count 217 MPV 8.3 Neutrophils % 54.9 Lymphocytes % 23.6 Monocytes % 15.6 H Eosinophils % 4.9 H D Basophils % 1.0 Sodium 144 Potassium 3.6 D Chloride 103 Carbon Dioxide 29 D Anion Gap 12 BUN 27 H D Creatinine 4.7 H D Creat Clearance w eGFR 13.10 POC Glucometer 100.24433 Random Glucose 72 L D Lactic Acid Calcium 8.6 Phosphorus 4.7 D Magnesium 2.3 Total Bilirubin 1.1 H D AST 36 ALT 43 Alkaline Phosphatase 90 Total Protein 8.2 Albumin 3.4 Random Vancomycin Hepatitis Be Antigen Crossmatch 02/07/18 02/07/18 08:58 08:58 WBC RBC Hgb Hct MCV MCH MCHC RDW Plt Count MPV Neutrophils % Lymphocytes % Monocytes % Eosinophils % Basophils % Sodium Potassium Chloride Carbon Dioxide Anion Gap BUN Creatinine Creat Clearance w eGFR POC Glucometer Random Glucose Lactic Acid 2.3 H* Calcium Phosphorus Magnesium Total Bilirubin AST ALT Alkaline Phosphatase Total Protein Albumin Random Vancomycin 14.018 Hepatitis Be Antigen Crossmatch Problem List - Problems (1) ESRD (end stage renal disease) on dialysis Code(s): N18.6 - END STAGE RENAL DISEASE; Z99.2 - DEPENDENCE ON RENAL DIALYSIS (2) Seizures Code(s): R56.9 - UNSPECIFIED CONVULSIONS Assessment/Plan AMS, episode of unresponsiveness. Seizures. CT head negative Coffee ground emesis, not likely GIB given stable Hgb ESRD on dialysis Elevated troponin likely in the setting of ESRD Elevated lactate probably in the setting of seizures -HD per Renal -Supplemental O2 as needed -PPI -Will need OSAS workup/treatment -D/C planning Dr Peralta
--- NOTE | 2018-02-07 11:54 | PN ---
Physical Exam: SUBJECTIVE: Patient seen and examined at bed side in ICU . no cute events over night. pt is still screaming and ask to go home , he is more alert and oriented . denies any chest pain, sob. OBJECTIVE: Vital Signs Period Temp Pulse Resp BP Sys/[place] Pulse Ox Last 24 Hr 97.2 F-98.6 F 70-82 14-25 82-120/57-107 97-100 GENERAL: AAO3 , episode of screaming HEAD: Normal with no signs of trauma. EYES: PERRL, EOMI, sclera anicteric, conjunctiva clear. ENT: Ears normal, nares patent, oropharynx clear without exudates, dry mucous membranes.enlarged avula NECK: Trachea midline, full range of motion, supple. LUNGS: Breath sounds equal, clear to auscultation bilaterally, no wheezes, no crackles, no accessory muscle use. HEART: Regular rate and rhythm, S1, S2 without murmur, rub or gallop.run of AV block at 10 am ABDOMEN: Soft, nontender, nondistended, normoactive bowel sounds, no guarding, no rebound, EXTREMITIES: 2+ pulses, warm, well-perfused, no edema. left AKA NEUROLOGICAL:no focal deficit PSYCH: episode of screaming SKIN: Warm, dry, normal turgor, Laboratory Results - last 24 hr 02/05/18 02/05/18 02/06/18 08:40 18:44 12:04 WBC RBC Hgb Hct MCV MCH MCHC RDW Plt Count MPV Neutrophils % Lymphocytes % Monocytes % Eosinophils % Basophils % Sodium Potassium Chloride Carbon Dioxide Anion Gap BUN Creatinine Creat Clearance w eGFR POC Glucometer 171.09973 161.71307 Random Glucose Lactic Acid Calcium Phosphorus Magnesium Total Bilirubin AST ALT Alkaline Phosphatase Total Protein Albumin Random Vancomycin Hepatitis Be Antigen Crossmatch See Detail 02/06/18 02/06/18 02/06/18 12:30 16:57 21:18 WBC RBC Hgb Hct MCV MCH MCHC RDW Plt Count MPV Neutrophils % Lymphocytes % Monocytes % Eosinophils % Basophils % Sodium Potassium Chloride Carbon Dioxide Anion Gap BUN Creatinine Creat Clearance w eGFR POC Glucometer 148.81969 189.07510 Random Glucose Lactic Acid Calcium Phosphorus Magnesium Total Bilirubin AST ALT Alkaline Phosphatase Total Protein Albumin Random Vancomycin Hepatitis Be Antigen Negative Crossmatch 02/07/18 02/07/18 02/07/18 06:27 08:58 08:58 WBC 6.4 RBC 3.61 L Hgb 11.7 Hct 36.0 MCV 99.6 H MCH 32.4 MCHC 32.5 RDW 16.4 H Plt Count 217 MPV 8.3 Neutrophils % 54.9 Lymphocytes % 23.6 Monocytes % 15.6 H Eosinophils % 4.9 H D Basophils % 1.0 Sodium 144 Potassium 3.6 D Chloride 103 Carbon Dioxide 29 D Anion Gap 12 BUN 27 H D Creatinine 4.7 H D Creat Clearance w eGFR 13.10 POC Glucometer 100.67500 Random Glucose 72 L D Lactic Acid Calcium 8.6 Phosphorus 4.7 D Magnesium 2.3 Total Bilirubin 1.1 H D AST 36 ALT 43 Alkaline Phosphatase 90 Total Protein 8.2 Albumin 3.4 Random Vancomycin Hepatitis Be Antigen Crossmatch 02/07/18 02/07/18 08:58 08:58 WBC RBC Hgb Hct MCV MCH MCHC RDW Plt Count MPV Neutrophils % Lymphocytes % Monocytes % Eosinophils % Basophils % Sodium Potassium Chloride Carbon Dioxide Anion Gap BUN Creatinine Creat Clearance w eGFR POC Glucometer Random Glucose Lactic Acid 2.3 H* Calcium Phosphorus Magnesium Total Bilirubin AST ALT Alkaline Phosphatase Total Protein Albumin Random Vancomycin 14.018 Hepatitis Be Antigen Crossmatch Active Medications Generic Name Dose Route Start Last Admin Trade Name Freq PRN Reason Stop Dose Admin Chlorhexidine Gluconate 1 applic 02/05/18 22:00 02/06/18 21:13 Hibiclens For Decolonization - TP 1 applic HS PATO Administration Insulin Aspart 1 vial 02/05/18 22:00 02/06/18 21:19 Novolog Vial Sliding Scale - SQ 2 units HS PATO Administration Protocol Insulin Aspart 1 vial 02/06/18 07:00 02/07/18 06:27 Novolog Vial Sliding Scale - SQ Not Given TIDAC [facility] Protocol Levetiracetam 250 mg 02/06/18 22:00 02/07/18 10:23 Keppra Injection - IVPB 250 mg BID PATO Administration Mupirocin 1 applic 02/05/18 22:00 02/07/18 10:24 Bactroban Ointment (For Decolonization) - NS 02/10/18 21:59 1 applic BID PATO Administration Pantoprazole Sodium 40 mg 02/07/18 10:00 02/07/18 10:24 Protonix Iv IVPUSH 40 mg DAILY [facility] Administration CBC, BMP 02/07/18 08:58 02/07/18 08:58 EKG: NSR, LVH similar to EKG from 05/2017 Tele : NSR. episodes Mobitz 1 second degree AVB, episodes 2:1 AVB ASSESSMENT/PLAN: 52 year old male with hx of ESRD on HD , DM, AKA, CVA , HLD, HTN sent to hospital from [place] after fall. # Neuro AMS , episode of unresponsiveness ,acute on chronic * likely 2/2 Ativan and LOU * pt has an episode of agitation and screaming was given Ativan 1 mg over night * he is AAOx3 , moving upper and lower ext , no facial asymmetry, * avoid Ativan and benzo unless there is seizure activity * aspiration precautions * Will need OSAS workup and treatment * fall precautions * restrain right arm due to episode of agitations and pulled his line out Seizure * had 2 episode of seizure in ED, has risk factors for seizure stroke and dementia * no more seizure was reported * CT head negative for acute pathology * neurology consulted dr Melton who recommend start keppra 250 mg po BID switch to IV due to pt non compliance (spit the meds ) * MRI when stable * EEG is planned # Cardiology heart block AV block * had a run of Mobitz I 2nd degree av block likely 2/2 hypoxia associated with the block likely due to Ativan * had another episode of karolina cardia 40 with hypoxia * cardiology consulted : recommended to continue tele monitor to R/O high degree AV block , no need for PPM for now * No syncope history was reported NSTEMI * presented with elevated trop 0.67 trend to 0.44 sahraley due to ESRD * no EKG specific changes , possible LVH * denies cp, sob , * follow echocardiogramn for wall motion abnormalities and LVH * stress test as out pt when stable for risk stratification HLD * cont crestor 20 mg po daily HTN * monitor * BP 99/60 today #Renal ESRD on HD * had HD yesterday * monitor H/H * monitor LA levels Elevated LA likely due to seizure activities in ED * monitor LA 2.3 trending down # GI * H/O coffee ground emesis * denies N/V/D , constipation is improving * H/H stable 11.7/36 * GI consulted Dr Dolan, no need for intervention for now per GI * No evidence of active bleeding * monitor H/H in AM * advance diet as tolerated * DC protonix drip and start IV 40 mg daily #Endo DM * BGM * ISS HS and ISS TIDAC * Diabetic diet # FEN * no standing fluids * E: monitor * N: advance diet as tolerated diabetic low NA diet #Proph GI: Protonix 40 mg iv once daily (refuse PO ) DVT: no needed for now , #Dispo * trasfer to tele , * Full code Visit type - Emergency Visit Emergency Visit: No - New Patient This patient is new to me today: No - Critical Care Critical Care patient: Yes Total Critical Care Time (in minutes): 45 Critical Care Statement: The care of this patient involved high complexity decision making to prevent further life threatening deterioration of the patient 's condition and/or to evaluate & treat vital organ system(s) failure or risk of failure.
--- NOTE | 2018-02-07 14:55 | PN ---
Progress Note (short form) - Note Progress Note: Chief Complaint: fall History of Present Illness: awake, confused on bipap. had another episode of bradycardia, altered mental status this afternoon preceded by hypoxia. no cigs Current Medications Chlorhexidine Gluconate (Hibiclens For Decolonization -) 1 applic TP HS [facility] Last Admin: 02/06/18 21:13 Dose: 1 applic Insulin Aspart (Novolog Vial Sliding Scale -) 1 vial SQ HS [facility] PRN Reason: Protocol Last Admin: 02/06/18 21:19 Dose: 2 units Insulin Aspart (Novolog Vial Sliding Scale -) 1 vial SQ TIDAC PATO PRN Reason: Protocol Last Admin: 02/07/18 12:38 Dose: 2 units Levetiracetam (Keppra Injection -) 250 mg IVPB BID [facility] Last Admin: 02/07/18 10:23 Dose: 250 mg Mupirocin (Bactroban Ointment (For Decolonization) -) 1 applic NS BID [facility] Stop: 02/10/18 21:59 Last Admin: 02/07/18 10:24 Dose: 1 applic Pantoprazole Sodium (Protonix Iv) 40 mg IVPUSH DAILY [facility] Last Admin: 02/07/18 10:24 Dose: 40 mg - Objective Vital Signs: Vital Signs - 24 hr 02/06/18 02/06/18 02/06/18 15:00 15:30 16:00 Temperature Pulse Rate 80 78 76 Respiratory 18 18 18 Rate Blood Pressure 98/68 93/59 92/61 O2 Sat by Pulse Oximetry (%) 02/06/18 02/06/18 02/06/18 16:27 18:00 20:00 Temperature 97.5 F L Pulse Rate 77 77 77 Respiratory 20 20 18 Rate Blood Pressure 92/61 95/68 88/64 O2 Sat by Pulse Oximetry (%) 02/06/18 02/06/18 02/06/18 20:21 22:00 23:34 Temperature 97.4 F L Pulse Rate 79 Respiratory 18 17 Rate Blood Pressure 99/60 O2 Sat by Pulse 100 Oximetry (%) 02/07/18 02/07/18 02/07/18 00:00 00:05 02:00 Temperature 97.2 F L Pulse Rate 71 75 Respiratory 20 23 Rate Blood Pressure 105/71 108/75 O2 Sat by Pulse 100 Oximetry (%) 02/07/18 02/07/18 02/07/18 02:30 04:00 05:00 Temperature Pulse Rate 77 Respiratory 22 Rate Blood Pressure 120/107 O2 Sat by Pulse 100 100 Oximetry (%) 02/07/18 02/07/18 02/07/18 06:00 08:00 10:00 Temperature 97.3 F L 98.2 F Pulse Rate 71 76 82 Respiratory 21 18 18 Rate Blood Pressure 107/63 113/74 105/74 O2 Sat by Pulse 97 Oximetry (%) 02/07/18 02/07/18 02/07/18 11:04 12:00 12:40 Temperature Pulse Rate 82 Respiratory 14 Rate Blood Pressure 110/70 O2 Sat by Pulse 97 100 Oximetry (%) Intake & Output 02/05/18 02/06/18 02/07/18 02/08/18 07:59 07:59 07:59 07:59 Intake Total 100 756 Balance 100 756 Weight 133 lb 4.8 oz 133 lb 4.8 oz 133 lb Constitutional: Yes: No Distress. No: Diaphoresis Eyes: No: Sclera Icterus HENT: No: Nasal Congestion Cardiovascular: Yes: Regular Rate and Rhythm, S1, S2, Other (PMI non diplaced). No: JVD, Gallop, Murmur Respiratory: Yes: CTA Bilaterally (anteriorly). No: Accessory Muscle Use, Rales , Wheezes Gastrointestinal: Yes: Normal Bowel Sounds, Soft. No: Tenderness Musculoskeletal: Yes: Other (No kyphosis) Extremities: Yes: Cold (RLE) Edema: No (s/p LLE amputation) Integumentary: No: Jaundice Neurological: alert Psychiatric: Agitated Labs: CBC, BMP 02/07/18 08:58 02/07/18 08:58 Assessment/Plan ecg: sr, lvh with repol changes. similar to ecg from 05/2017 except now twis more pronounced tele: NSR. episodes Mobitz 1 second degree AVB. 20 min period of bradycardia with 2:1 block, 3 instances of prolonged dropped beats (3:1 block and 4:1 block ). Hypoxia down to 60's and 70's noted on telemetry during and preceding the event. echo 01/2018: nl lv size. mod reduced LV fn. EF 40%. grade ii diastolic dysfunction. 1+ rve. nl rv fn. 1+ lae. mild-mod mr. mod phtn. rvsp 54 mmhg. a/p: 52 m hx esrd on hd, dm, aka, cva, hld, htn sent from [place] after [place]. fall: -mechanical fall out of bed in pt who [facility] staff reports has often jumped out of bed in the past heart block (AV block): -episodes of Mobitz 1 second-degree AVB on tele, with episodes of 2:1 likely due to the same etiology (i.e. typically benign). per d/w dr moreno, pt noted to be hypoxic during these episodes. he is also presently obtunded, s/p ativan doses--likely high vagal tone -this would not be indication for PPM -cont tele to r/o high-grade AVB - 02/07 today with recurrent episode of altered mental status, bradycardia (up to 4:1 block, see above) in the setting of hypoxia. Discussed with EP. When induced by hypoxia/increased vagal tone tends to be benign with no risk of inducing ventricular arrhythmias or of progressing to asystole. In light of reversible etiology, no indication for ppm treatment. Per discussion with EP, bradycardia (even if he were to have more prolonged pauses) is not a cause of hypoxia. Therefore, the hypoxia is inducing the bradycardia and not the other way around. Recommend close monitoring of O2 status, tx of lou etc.. discussed with pmd/pulm/critical care. - lyte repletion prn NSTEMI/hl: -trop initially 0.6--flat trend (0.4-0.6). no ischemic ECG changes, no CV sxs. -likely type II IN (? related to bp changes at time of fall, ? other) -ecg similar to prior, possible lvh pattern -02/07 Echo with systolic dysfunction,EF 40% (no rwma described, global?). Would repeat/assess for improvement once acute issues resolve. Stress testing can be electively considered later, to risk stratify (i.e. ? underlying chronic, stable CAD) - resume asa, statin when safe per gi. esrd: -hd per renal, no signs vol overload presently htn: -bp controlled -cont present mgmt hematemesis: -plans per critical care +/- GI LOU - per pulm/critical care/pmd.
[2018-02-07] MEDS ORDERED: SODIUM CHLORIDE 250 ML IV PRN (15:44)
--- NOTE | 2018-02-07 15:44 | PN ---
Progress Note, Physician History of Present Illness: Pt seen and examined at bedside. He has been agitated. - Current Medication List Current Medications: Active Medications Chlorhexidine Gluconate (Hibiclens For Decolonization -) 1 applic TP HS [facility] Last Admin: 02/06/18 21:13 Dose: 1 applic Insulin Aspart (Novolog Vial Sliding Scale -) 1 vial SQ HS [facility] PRN Reason: Protocol Last Admin: 02/06/18 21:19 Dose: 2 units Insulin Aspart (Novolog Vial Sliding Scale -) 1 vial SQ TIDAC [facility] PRN Reason: Protocol Last Admin: 02/07/18 12:38 Dose: 2 units Levetiracetam (Keppra Injection -) 250 mg IVPB BID [facility] Last Admin: 02/07/18 10:23 Dose: 250 mg Mupirocin (Bactroban Ointment (For Decolonization) -) 1 applic NS BID [facility] Stop: 02/10/18 21:59 Last Admin: 02/07/18 10:24 Dose: 1 applic Pantoprazole Sodium (Protonix Iv) 40 mg IVPUSH DAILY [facility] Last Admin: 02/07/18 10:24 Dose: 40 mg - Objective Vital Signs: Vital Signs Temperature 98.5 F 02/07/18 14:00 Pulse Rate 75 02/07/18 14:00 Respiratory Rate 18 02/07/18 14:00 Blood Pressure 92/62 02/07/18 14:00 O2 Sat by Pulse Oximetry (%) 98 02/07/18 12:40 Constitutional: Yes: Calm Eyes: Yes: Conjunctiva Clear HENT: Yes: Atraumatic Cardiovascular: Yes: S1, S2 Respiratory: Yes: On BiPap Gastrointestinal: Yes: Soft Genitourinary: Yes: Incontinence Musculoskeletal: Yes: Muscle Weakness Edema: No Neurological: Yes: Lethargy Labs: CBC, BMP 02/07/18 08:58 02/07/18 08:58 - ....Imaging Chest X-ray: Report Reviewed Problem List - Problems (1) ESRD (end stage renal disease) on dialysis Code(s): N18.6 - END STAGE RENAL DISEASE; Z99.2 - DEPENDENCE ON RENAL DIALYSIS (2) Seizures Code(s): R56.9 - UNSPECIFIED CONVULSIONS Assessment/Plan Current Medications Generic Name Dose Route Start Last Admin Trade Name Freq PRN Reason Stop Dose Admin Chlorhexidine Gluconate 1 applic 02/05/18 22:00 02/06/18 21:13 Hibiclens For Decolonization - TP 1 applic HS [facility] Administration Insulin Aspart 1 vial 02/05/18 22:00 02/06/18 21:19 Novolog Vial Sliding Scale - SQ 2 units HS PATO Administration Protocol Insulin Aspart 1 vial 02/06/18 07:00 02/07/18 12:38 Novolog Vial Sliding Scale - SQ 2 units TIDAC [facility] Administration Protocol Levetiracetam 250 mg 02/06/18 22:00 02/07/18 10:23 Keppra Injection - IVPB 250 mg BID [facility] Administration Mupirocin 1 applic 02/05/18 22:00 02/07/18 10:24 Bactroban Ointment (For Decolonization) - NS 02/10/18 21:59 1 applic BID [facility] Administration Pantoprazole Sodium 40 mg 02/07/18 10:00 02/07/18 10:24 Protonix Iv IVPUSH 40 mg DAILY [facility] Administration Impression 1. ESRD 2. seizure 3. coffee ground emesis 4. lactic acidosis 5. altered mental status Plan - HD in am - monitor pulse ox - lactic acid improving - called HD unit, pt on 3:30 2 k bath left arm aav fistula aranesp 25 on Saturdays, venofer 50 weekly TTS schedule - discussed with ICU team - pt off HD schedule this week, will dialyze
[2018-02-07] MEDS: CHLORHEXIDINE GLUCONATE 4% CLEANSER FOR DECOLONIZATION TP SCH (21:28)
[2018-02-08] MEDS: INSULIN SLIDING SCALE (NOVOLOG) 1 VIAL SQ SCH ×5 (06:05→23:20)
[2018-02-08 07:45] LABS: HEMATOCRIT 33.6 % (35.4-49); HEMOGLOBIN 11.1 GM/dL (11.7-16.9); MCH 32.9 pg (25.7-33.7); MEAN CELL VOLUME 99.7 fl (80-96); PLATELET COUNT 220 K/MM3 (134-434); RBC 3.36 M/mm3 (4.00-5.60); RDW 16.4 % (11.9-15.9); WHITE BLOOD COUNT 5.8 K/mm3 (4.0-10.0)
[2018-02-08 07:46] LABS: BASO % 0.8 % (0-2.0); EOS % 5.5 % (0-4.5); LYMPH % 22.2 % (8-40); MEAN PLT VOLUME 8.5 fl (7.5-11.1); MONO % 13.5 % (3.8-10.2)
[2018-02-08 07:50] LABS: ANION GAP 15 (8-16); BLOOD UREA NITROGEN 36 mg/dL (7-18); CALCIUM 8.9 mg/dL (8.5-10.1); CHLORIDE 103 mmol/L (98-107); CO2 27 mmol/L (21-32); CREATININE 5.5 mg/dL (0.7-1.3); GLUCOSE,RANDOM 213 mg/dL (74-106); POTASSIUM 4.1 mmol/L (3.5-5.1); SODIUM 145 mmol/L (136-145)
[2018-02-08 07:51] LABS: MAGNESIUM 2.3 mg/dL (1.8-2.4); PHOSPHOROUS 6.5 mg/dL (2.5-4.9); TOT PROT 7.6 g/dl (6.4-8.2)
[2018-02-08 07:52] LABS: ALBUMIN 3.4 g/dl (3.4-5.0); ALK PHOS 87 U/L (45-117); BILIRUBIN,TOTAL 0.9 mg/dL (0.2-1.0); SGOT/AST 24 U/L (15-37); SGPT/ALT 36 U/L (12-78)
--- NOTE | 2018-02-08 09:43 | PN ---
Progress Note, Physician Chief Complaint: discharge in hold due to hypoxia episodes-- on deep sleep -- was placed on CPAP last night undergoing HD sleepy-- O2 sat RA-- 98 % comfortable - Current Medication List Current Medications: Active Medications Chlorhexidine Gluconate (Hibiclens For Decolonization -) 1 applic TP HS [facility] Last Admin: 02/07/18 21:28 Dose: 1 applic Sodium Chloride (Normal Saline -) 250 mls @ 3,000 mls/hr IV PRN PRN PRN Reason: Hypotension during Dialysis Stop: 02/08/18 15:44 Insulin Aspart (Novolog Vial Sliding Scale -) 1 vial SQ HS [facility] PRN Reason: Protocol Last Admin: 02/07/18 21:35 Dose: Not Given Insulin Aspart (Novolog Vial Sliding Scale -) 1 vial SQ TIDAC [facility] PRN Reason: Protocol Last Admin: 02/08/18 06:05 Dose: 4 units Levetiracetam (Keppra Injection -) 250 mg IVPB BID [facility] Last Admin: 02/07/18 21:28 Dose: 250 mg Mupirocin (Bactroban Ointment (For Decolonization) -) 1 applic NS BID [facility] Stop: 02/10/18 21:59 Last Admin: 02/07/18 21:29 Dose: 1 applic Pantoprazole Sodium (Protonix Iv) 40 mg IVPUSH DAILY [facility] Last Admin: 02/07/18 10:24 Dose: 40 mg - Objective Vital Signs: Vital Signs Temperature 97.4 F L 02/08/18 06:00 Pulse Rate 89 02/08/18 08:00 Respiratory Rate 13 02/08/18 08:00 Blood Pressure 111/81 02/08/18 08:00 O2 Sat by Pulse Oximetry (%) 100 02/08/18 05:30 Constitutional: Yes: No Distress Cardiovascular: Yes: Regular Rate and Rhythm Respiratory: Yes: Diminished Gastrointestinal: Yes: Normal Bowel Sounds, Soft. No: Tenderness Extremities: Yes: Amputation Edema: No Labs: CBC, BMP 02/08/18 05:10 02/08/18 05:10 Problem List - Problems (1) Fall Code(s): W19.XXXA - UNSPECIFIED FALL, INITIAL ENCOUNTER (2) ESRD (end stage renal disease) on dialysis Code(s): N18.6 - END STAGE RENAL DISEASE; Z99.2 - DEPENDENCE ON RENAL DIALYSIS (3) Seizures Code(s): R56.9 - UNSPECIFIED CONVULSIONS (4) Abnormal EKG Code(s): R94.31 - ABNORMAL ELECTROCARDIOGRAM [ECG] [EKG] (5) Coffee ground vomiting Code(s): K92.0 - HEMATEMESIS (6) Elevated troponin Code(s): R74.8 - ABNORMAL LEVELS OF OTHER SERUM ENZYMES Assessment/Plan PLAN hypoxia,LOU -- not due to bradycardia per Cardiology -- was on CPAP last night-- did not remove it -- clinically better S/P fall -- CT head x 2 negative Seizures -- had 2 episodes in ER -- head ct negative -- received Ativan iv -- no further seizures so far -- precautions --possibly due to hypoxia Elevated troponins -- flat trend -- echo-- systolic dysfunction -- stress test as outpt Upper GI bleed -- HCT stable -- GI eval appreciated -- likely gastroparesis -- on protonix ESRD on HD -- HD per renal dc plan
--- NOTE | 2018-02-08 11:35 | PN ---
Teaching Attending Note Name of Resident: Martha Jimenez ATTENDING PHYSICIAN STATEMENT I saw and evaluated the patient. I reviewed the resident's note and discussed the case with the resident. I agree with the resident's findings and plan as documented. SUBJECTIVE: Patient seen and examined in the ICU. Awake and alert. No further seizures noted. Saturations now normal on RA. Patient with loud snoring and noticeable episodes of desaturation with associated bradycardia indicative of sleep apnea. Intake & Output 02/05/18 02/06/18 02/07/18 02/08/18 23:59 23:59 23:59 23:59 Intake Total 856 320 100 Balance 856 320 100 Weight 133 lb 4.8 oz 133 lb 132 lb 11.492 oz Last Vital Signs Temp Pulse Resp BP Pulse Ox 98.4 F 86 14 96/75 100 02/08/18 10:00 02/08/18 10:00 02/08/18 10:00 02/08/18 10:00 02/08/18 05:30 Active Medications Chlorhexidine Gluconate (Hibiclens For Decolonization -) 1 applic TP HS [facility] Last Admin: 02/07/18 21:28 Dose: 1 applic Sodium Chloride (Normal Saline -) 250 mls @ 3,000 mls/hr IV PRN PRN PRN Reason: Hypotension during Dialysis Stop: 02/08/18 15:44 Insulin Aspart (Novolog Vial Sliding Scale -) 1 vial SQ HS [facility] PRN Reason: Protocol Last Admin: 02/07/18 21:35 Dose: Not Given Insulin Aspart (Novolog Vial Sliding Scale -) 1 vial SQ TIDAC [facility] PRN Reason: Protocol Last Admin: 02/08/18 06:05 Dose: 4 units Levetiracetam (Keppra Injection -) 250 mg IVPB BID [facility] Last Admin: 02/07/18 21:28 Dose: 250 mg Mupirocin (Bactroban Ointment (For Decolonization) -) 1 applic NS BID [facility] Stop: 02/10/18 21:59 Last Admin: 02/07/18 21:29 Dose: 1 applic Pantoprazole Sodium (Protonix Iv) 40 mg IVPUSH DAILY [facility] Last Admin: 02/07/18 10:24 Dose: 40 mg Gen: Awake and interactive, NAD on RA Cardiovascular: Yes: Regular Rate and Rhythm Respiratory: Yes: CTA Bilaterally Gastrointestinal: Yes: Soft. No: Tenderness Edema: No Neurological: Yes: non-focal Labs: Laboratory Results - last 24 hr 02/05/18 02/06/18 02/07/18 08:40 12:30 17:48 WBC RBC Hgb Hct MCV MCH MCHC RDW Plt Count MPV Neutrophils % Lymphocytes % Monocytes % Eosinophils % Basophils % Sodium Potassium Chloride Carbon Dioxide Anion Gap BUN Creatinine Creat Clearance w eGFR POC Glucometer 127.73206 Random Glucose Calcium Phosphorus Magnesium Total Bilirubin AST ALT Alkaline Phosphatase Total Protein Albumin Hep C Ab Diagnostic <0.1 Liver Fibrosis Interp Crossmatch See Detail 02/07/18 02/08/18 02/08/18 21:35 05:10 05:10 WBC 5.8 RBC 3.36 L Hgb 11.1 L Hct 33.6 L MCV 99.7 H MCH 32.9 MCHC 33.0 RDW 16.4 H Plt Count 220 MPV 8.5 Neutrophils % 58.0 Lymphocytes % 22.2 Monocytes % 13.5 H Eosinophils % 5.5 H Basophils % 0.8 Sodium 145 Potassium 4.1 Chloride 103 Carbon Dioxide 27 Anion Gap 15 BUN 36 H D Creatinine 5.5 H Creat Clearance w eGFR 10.93 POC Glucometer 175.06350 Random Glucose 213 H D Calcium 8.9 Phosphorus 6.5 H D Magnesium 2.3 Total Bilirubin 0.9 AST 24 D ALT 36 Alkaline Phosphatase 87 Total Protein 7.6 Albumin 3.4 Hep C Ab Diagnostic Liver Fibrosis Interp Crossmatch 02/08/18 05:31 WBC RBC Hgb Hct MCV MCH MCHC RDW Plt Count MPV Neutrophils % Lymphocytes % Monocytes % Eosinophils % Basophils % Sodium Potassium Chloride Carbon Dioxide Anion Gap BUN Creatinine Creat Clearance w eGFR POC Glucometer [phone] Random Glucose Calcium Phosphorus Magnesium Total Bilirubin AST ALT Alkaline Phosphatase Total Protein Albumin Hep C Ab Diagnostic Liver Fibrosis Interp Crossmatch Problem List - Problems (1) ESRD (end stage renal disease) on dialysis Code(s): N18.6 - END STAGE RENAL DISEASE; Z99.2 - DEPENDENCE ON RENAL DIALYSIS (2) Seizures Code(s): R56.9 - UNSPECIFIED CONVULSIONS Assessment/Plan AMS, episode of unresponsiveness. Seizures. CT head negative Coffee ground emesis, not likely GIB given stable Hgb ESRD on dialysis Elevated troponin likely in the setting of ESRD Elevated lactate probably in the setting of seizures -HD per Renal -Supplemental O2 as needed -PPI -Very high clinical suspicion of OSAS, will need in lab sleep evaluation due to multiple medical morbidties and noted repeated bradycardia -No Pulmonary contraindication for D/C planning and continued expedited workup as an outpatient Dr Peralta
--- NOTE | 2018-02-08 12:01 | PN ---
Progress Note, Physician History of Present Illness: Pt seen and examined at bedside. He is currently getting HD. He remains in the ICU. He is calmer today. - Current Medication List Current Medications: Active Medications Chlorhexidine Gluconate (Hibiclens For Decolonization -) 1 applic TP HS [facility] Last Admin: 02/07/18 21:28 Dose: 1 applic Sodium Chloride (Normal Saline -) 250 mls @ 3,000 mls/hr IV PRN PRN PRN Reason: Hypotension during Dialysis Stop: 02/08/18 15:44 Insulin Aspart (Novolog Vial Sliding Scale -) 1 vial SQ HS [facility] PRN Reason: Protocol Last Admin: 02/07/18 21:35 Dose: Not Given Insulin Aspart (Novolog Vial Sliding Scale -) 1 vial SQ TIDAC [facility] PRN Reason: Protocol Last Admin: 02/08/18 06:05 Dose: 4 units Levetiracetam (Keppra Injection -) 250 mg IVPB BID [facility] Last Admin: 02/07/18 21:28 Dose: 250 mg Mupirocin (Bactroban Ointment (For Decolonization) -) 1 applic NS BID [facility] Stop: 02/10/18 21:59 Last Admin: 02/07/18 21:29 Dose: 1 applic Pantoprazole Sodium (Protonix Iv) 40 mg IVPUSH DAILY [facility] Last Admin: 02/07/18 10:24 Dose: 40 mg - Objective Vital Signs: Vital Signs Temperature 98.4 F 02/08/18 10:00 Pulse Rate 86 02/08/18 10:00 Respiratory Rate 14 02/08/18 10:00 Blood Pressure 96/75 02/08/18 10:00 O2 Sat by Pulse Oximetry (%) 100 02/08/18 05:30 Constitutional: Yes: Calm Eyes: Yes: Conjunctiva Clear HENT: Yes: Atraumatic Cardiovascular: Yes: S1, S2 Respiratory: Yes: CTA Bilaterally, On Nasal O2 Gastrointestinal: Yes: Soft Genitourinary: Yes: Incontinence Extremities: Yes: Other (left aka) Edema: No Neurological: Yes: Confusion Labs: CBC, BMP 02/08/18 05:10 02/08/18 05:10 - ....Imaging Chest X-ray: Report Reviewed Problem List - Problems (1) ESRD (end stage renal disease) on dialysis Code(s): N18.6 - END STAGE RENAL DISEASE; Z99.2 - DEPENDENCE ON RENAL DIALYSIS (2) Seizures Code(s): R56.9 - UNSPECIFIED CONVULSIONS Assessment/Plan Current Medications Generic Name Dose Route Start Last Admin Trade Name Breanna PRN Reason Stop Dose Admin Chlorhexidine Gluconate 1 applic 02/07/18 22:00 02/07/18 21:28 Hibiclens For Decolonization - TP 1 applic HS [facility] Administration Sodium Chloride 250 mls @ 3,000 mls/hr 02/07/18 15:44 Normal Saline - IV 02/08/18 15:44 PRN PRN Hypotension during Dialysis Insulin Aspart 1 vial 02/07/18 22:00 02/07/18 21:35 Novolog Vial Sliding Scale - SQ Not Given HS [facility] Protocol Insulin Aspart 1 vial 02/08/18 07:00 02/08/18 06:05 Novolog Vial Sliding Scale - SQ 4 units TIDAC [facility] Administration Protocol Levetiracetam 250 mg 02/06/18 22:00 02/07/18 21:28 Keppra Injection - IVPB 250 mg BID [facility] Administration Mupirocin 1 applic 02/07/18 22:00 02/07/18 21:29 Bactroban Ointment (For Decolonization) - NS 02/10/18 21:59 1 applic BID [facility] Administration Pantoprazole Sodium 40 mg 02/07/18 10:00 02/07/18 10:24 Protonix Iv IVPUSH 40 mg DAILY [facility] Administration Impression 1. ESRD 2. seizure 3. coffee ground emesis 4. lactic acidosis 5. altered mental status Plan - HD today - pt is off of bipap - critical care input appreciated - monitor hg - called HD unit, pt on 3:30 2 k bath left arm aav fistula aranesp 25 on Saturdays, venofer 50 weekly TTS schedule
--- NOTE | 2018-02-08 13:59 | PN ---
Physical Exam: SUBJECTIVE: Patient seen and examined No acute events overnight CPAP overnight HR in 80s OBJECTIVE: Vital Signs Period Temp Pulse Resp BP Sys/[place] Pulse Ox Last 24 Hr 97.4 F-98.5 F 72-90 13-22 87-112/46-96 99-100 GENERAL: The patient is awake, alert, no acute distress. LUNGS: Breath sounds equal, clear to auscultation bilaterally, no wheezes, no crackles, no accessory muscle use. HEART: Regular rate and rhythm, S1, S2 without murmur, rub or gallop. ABDOMEN: Soft, nontender, nondistended, normoactive bowel sounds, no guarding, no rebound, no hepatosplenomegaly, no masses. EXTREMITIES: 2+ pulses, warm, well-perfused, no edema. left bka NEUROLOGICAL: Cranial nerves II through XII grossly intact. PSYCH: depressed/agitated affect Laboratory Results - last 24 hr 02/06/18 02/07/18 02/07/18 12:30 17:48 21:35 WBC RBC Hgb Hct MCV MCH MCHC RDW Plt Count MPV Neutrophils % Lymphocytes % Monocytes % Eosinophils % Basophils % Sodium Potassium Chloride Carbon Dioxide Anion Gap BUN Creatinine Creat Clearance w eGFR POC Glucometer 127.35376 175.23933 Random Glucose Calcium Phosphorus Magnesium Total Bilirubin AST ALT Alkaline Phosphatase Total Protein Albumin Hep C Ab Diagnostic <0.1 Liver Fibrosis Interp 02/08/18 02/08/18 02/08/18 05:10 05:10 05:31 WBC 5.8 RBC 3.36 L Hgb 11.1 L Hct 33.6 L MCV 99.7 H MCH 32.9 MCHC 33.0 RDW 16.4 H Plt Count 220 MPV 8.5 Neutrophils % 58.0 Lymphocytes % 22.2 Monocytes % 13.5 H Eosinophils % 5.5 H Basophils % 0.8 Sodium 145 Potassium 4.1 Chloride 103 Carbon Dioxide 27 Anion Gap 15 BUN 36 H D Creatinine 5.5 H Creat Clearance w eGFR 10.93 POC Glucometer 236.67608 Random Glucose 213 H D Calcium 8.9 Phosphorus 6.5 H D Magnesium 2.3 Total Bilirubin 0.9 AST 24 D ALT 36 Alkaline Phosphatase 87 Total Protein 7.6 Albumin 3.4 Hep C Ab Diagnostic Liver Fibrosis Interp 02/08/18 02/08/18 12:13 12:33 WBC RBC Hgb Hct MCV MCH MCHC RDW Plt Count MPV Neutrophils % Lymphocytes % Monocytes % Eosinophils % Basophils % Sodium Potassium Chloride Carbon Dioxide Anion Gap BUN Creatinine Creat Clearance w eGFR POC Glucometer 169.40237 258.69753 Random Glucose Calcium Phosphorus Magnesium Total Bilirubin AST ALT Alkaline Phosphatase Total Protein Albumin Hep C Ab Diagnostic Liver Fibrosis Interp Active Medications Generic Name Dose Route Start Last Admin Trade Name Breanna PRN Reason Stop Dose Admin Chlorhexidine Gluconate 1 applic 02/07/18 22:00 02/07/18 21:28 Hibiclens For Decolonization - TP 1 applic HS [facility] Administration Sodium Chloride 250 mls @ 3,000 mls/hr 02/07/18 15:44 Normal Saline - IV 02/08/18 15:44 PRN PRN Hypotension during Dialysis Insulin Aspart 1 vial 02/07/18 22:00 02/07/18 21:35 Novolog Vial Sliding Scale - SQ Not Given HS [facility] Protocol Insulin Aspart 1 vial 02/08/18 07:00 02/08/18 12:46 Novolog Vial Sliding Scale - SQ 2 units TIDAC [facility] Administration Protocol Levetiracetam 250 mg 02/06/18 22:00 02/07/18 21:28 Keppra Injection - IVPB 250 mg BID [facility] Administration Mupirocin 1 applic 02/07/18 22:00 02/07/18 21:29 Bactroban Ointment (For Decolonization) - NS 02/10/18 21:59 1 applic BID [facility] Administration Pantoprazole Sodium 40 mg 02/07/18 10:00 02/07/18 10:24 Protonix Iv IVPUSH 40 mg DAILY [facility] Administration ASSESSMENT/PLAN: This is a 52 yr male with a history of seizures, cva, ESRD on HD who presented with AMS, s/p seizure and coffee ground emesis, AV block. #AMS; currently at baseline -head CT negative for acute pathology #Seizures: currently resolved -cont home AE #coffee ground emesis: resolved -GI bleed ruled out -no more episodes -heme occult negative -h/h/ stable -evaluated by GI #elevated lactic acid : improving -most likely secondary to seizure/hypoxia -no acute signs of infection #ESRD on HD -TTS -nephro on #elevated trop: -most lieky sec to ESRD; -demand ischemia #hypoxia: -most likely sec to OSAS -need outpatient sleep study -cont CPAP CARRILLO ; prn -supp of prn #AV heart block/bradhycardia -seen by cardio; no acute need for EP study Disposition: stable for DC Visit type - Emergency Visit Emergency Visit: Yes ED Registration Date: 02/06/18 Care time: The patient presented to the Emergency Department on the above date and was hospitalized for further evaluation of their emergent condition. - New Patient This patient is new to me today: Yes Date on this admission: 02/08/18 - Critical Care Critical Care patient: Yes Total Critical Care Time (in minutes): 45 Critical Care Statement: The care of this patient involved high complexity decision making to prevent further life threatening deterioration of the patient 's condition and/or to evaluate & treat vital organ system(s) failure or risk of failure.
[2018-02-08] MEDS: levETIRAcetam 500 MG/5 ML INJECTION VIAL IVPB SCH ×2 (14:13→23:35)
[2018-02-08] MEDS: MUPIROCIN 2% TOPICAL OINTMENT FOR DECOLONIZATION NS SCH ×2 (14:15→23:20)
[2018-02-08] MEDS: PANTOPRAZOLE SODIUM 40 MG VIAL IVPUSH SCH (14:15)
--- NOTE | 2018-02-08 17:21 | PN ---
Progress Note (short form) - Note Progress Note: Chief Complaint: fall History of Present Illness: s/p HD today. more alert today. + sleepiness, otherwise no complaints. no cp , palps, dizziness, sob. no cigs Current Medications Chlorhexidine Gluconate (Hibiclens For Decolonization -) 1 applic TP HS [facility] Last Admin: 02/07/18 21:28 Dose: 1 applic Sodium Chloride (Normal Saline -) 250 mls @ 3,000 mls/hr IV PRN PRN PRN Reason: Hypotension during Dialysis Stop: 02/08/18 15:44 Insulin Aspart (Novolog Vial Sliding Scale -) 1 vial SQ HS [facility] PRN Reason: Protocol Last Admin: 02/07/18 21:35 Dose: Not Given Insulin Aspart (Novolog Vial Sliding Scale -) 1 vial SQ TIDAC [facility] PRN Reason: Protocol Last Admin: 02/08/18 12:46 Dose: 2 units Levetiracetam (Keppra Injection -) 250 mg IVPB BID [facility] Last Admin: 02/08/18 14:13 Dose: 250 mg Mupirocin (Bactroban Ointment (For Decolonization) -) 1 applic NS BID [facility] Stop: 02/10/18 21:59 Last Admin: 02/08/18 14:15 Dose: 1 applic Pantoprazole Sodium (Protonix Iv) 40 mg IVPUSH DAILY [facility] Last Admin: 02/08/18 14:15 Dose: 40 mg Vital Signs - 24 hr 02/07/18 02/07/18 02/07/18 18:00 20:00 22:00 Temperature 97.4 F L Pulse Rate 82 90 79 Respiratory 18 18 15 Rate Blood Pressure 105/75 102/69 102/68 O2 Sat by Pulse Oximetry (%) 02/08/18 02/08/18 02/08/18 00:00 02:00 02:30 Temperature 97.6 F Pulse Rate 75 72 Respiratory 18 20 Rate Blood Pressure 103/74 104/73 O2 Sat by Pulse 100 Oximetry (%) 02/08/18 02/08/18 02/08/18 04:00 05:30 06:00 Temperature 97.4 F L Pulse Rate 79 81 Respiratory 18 17 Rate Blood Pressure 104/83 112/73 O2 Sat by Pulse 100 Oximetry (%) 02/08/18 02/08/18 02/08/18 08:00 09:20 09:25 Temperature 97.6 F Pulse Rate 89 84 87 Respiratory 13 16 18 Rate Blood Pressure 111/81 111/81 92/73 O2 Sat by Pulse Oximetry (%) 02/08/18 02/08/18 02/08/18 09:55 10:00 10:25 Temperature 98.4 F Pulse Rate 88 86 90 Respiratory 18 14 22 Rate Blood Pressure 87/77 96/75 106/96 O2 Sat by Pulse Oximetry (%) 02/08/18 02/08/18 02/08/18 10:55 11:25 11:55 Temperature Pulse Rate 87 84 84 Respiratory 18 19 17 Rate Blood Pressure 90/46 107/70 112/71 O2 Sat by Pulse Oximetry (%) 02/08/18 02/08/18 02/08/18 12:00 12:25 12:55 Temperature Pulse Rate 81 82 79 Respiratory 19 18 18 Rate Blood Pressure 112/70 112/70 110/74 O2 Sat by Pulse Oximetry (%) 02/08/18 02/08/18 02/08/18 13:14 14:00 16:00 Temperature Pulse Rate 80 81 84 Respiratory 20 16 15 Rate Blood Pressure 104/69 114/69 107/72 O2 Sat by Pulse Oximetry (%) Intake & Output 02/06/18 02/07/18 02/08/18 02/09/18 07:59 07:59 07:59 07:59 Intake Total 756 420 400 Balance 756 420 400 Weight 133 lb 4.8 oz 133 lb 132 lb 11.492 oz Constitutional: Yes: No Distress. No: Diaphoresis Eyes: No: Sclera Icterus HENT: No: Nasal Congestion Cardiovascular: Yes: Regular Rate and Rhythm, S1, S2, Other (PMI non diplaced). No: JVD, Gallop, Murmur Respiratory: Yes: CTA Bilaterally (anteriorly). No: Accessory Muscle Use, Rales , Wheezes Gastrointestinal: Yes: Normal Bowel Sounds, Soft. No: Tenderness Musculoskeletal: Yes: Other (No kyphosis) Extremities: Warm Edema: No (s/p LLE amputation) Integumentary: No: Jaundice Neurological: alert Psychiatric: Agitated Labs: CBC, BMP 02/08/18 05:10 02/08/18 05:10 Laboratory Tests 02/08/18 05:10 Lactic Acid Magnesium 2.3 Total Bilirubin 0.9 AST 24 D ALT 36 Alkaline Phosphatase 87 Assessment/Plan ecg: sr, lvh with repol changes. similar to ecg from 05/2017 except now twis more pronounced tele: NSR. episodes Mobitz 1 second degree AVB. last episode of bradycardia last night around 11pm. (brief episode of 3:1 block) echo 01/2018: nl lv size. mod reduced LV fn. EF 40%. grade ii diastolic dysfunction. 1+ rve. nl rv fn. 1+ lae. mild-mod mr. mod phtn. rvsp 54 mmhg. a/p: 52 m hx esrd on hd, dm, aka, cva, hld, htn sent from [place] after fall. fall: -mechanical fall out of bed in pt who [place] staff reports has often jumped out of bed in the past heart block (AV block): -episodes of Mobitz 1 second-degree AVB on tele, with episodes of 2:1 likely due to the same etiology (i.e. typically benign). per d/w dr moreno, pt noted to be hypoxic during these episodes. he is also presently obtunded, s/p ativan doses--likely high vagal tone -this would not be indication for PPM -cont tele to r/o high-grade AVB - 02/07 today with recurrent episode of altered mental status, bradycardia (up to 4:1 block, see above) in the setting of hypoxia. Discussed with EP. When induced by hypoxia/increased vagal tone tends to be benign with no risk of inducing ventricular arrhythmias or of progressing to asystole. In light of reversible etiology, no indication for ppm treatment. Per discussion with EP, bradycardia (even if he were to have more prolonged pauses) is not a cause of hypoxia. Therefore, the hypoxia is inducing the bradycardia and not the other way around. Recommend close monitoring of O2 status, tx of boo etc.. discussed with pmd/pulm/critical care. - 02/08: O2 sats improving. s/p HD today. last episode of hypoxia/boo induced bradycardia/Mobitz occurred last night. No change in mgm't. Ongoing optimization of oxygenation and boo per pulm/pmd. - lyte repletion prn NSTEMI/hl/cardiomyopathy: -trop initially 0.6--flat trend (0.4-0.6). no ischemic ECG changes, no CV sxs. -likely type II SD (? related to bp changes at time of fall, ? other) -ecg similar to prior, possible lvh pattern -02/07 Echo with systolic dysfunction,EF 40% (no rwma described, global?). Would repeat/assess for improvement as outpatient once acute issues resolve. Stress testing can be electively considered later, to risk stratify at discretion of outpatient MD (i.e. ? underlying chronic, stable CAD) - resume asa, statin when safe per gi. esrd: -hd per renal, no signs vol overload presently htn: -bp controlled off anti-hypertensives. hematemesis: -plans per critical care +/- GI BOO - per pulm/critical care/pmd.
[2018-02-08] MEDS: CHLORHEXIDINE GLUCONATE 4% CLEANSER FOR DECOLONIZATION TP SCH (23:20)
[2018-02-09 03:26] VITALS: TEMP 98.1
[2018-02-09] MEDS: INSULIN SLIDING SCALE (NOVOLOG) 1 VIAL SQ SCH ×2 (06:17→11:56)
[2018-02-09 06:34] VITALS: BP 112/71; PULSE 82
[2018-02-09] MEDS: levETIRAcetam 500 MG/5 ML INJECTION VIAL IVPB SCH (09:01)
[2018-02-09] MEDS: PANTOPRAZOLE SODIUM 40 MG VIAL IVPUSH SCH (09:01)
--- NOTE | 2018-02-09 10:53 | PN ---
Progress Note (short form) - Note Progress Note: Chief Complaint: fall History of Present Illness: no cp, palps, dizziness, sob. Vital Signs Period Temp Pulse Resp BP Sys/[place] Pulse Ox Last 24 Hr 98.1 F-98.2 F 79-87 15-20 90-114/46-75 100-100 Constitutional: Yes: No Distress. No: Diaphoresis Eyes: No: Sclera Icterus HENT: No: Nasal Congestion Cardiovascular: Yes: Regular Rate and Rhythm, S1, S2, Other (PMI non diplaced). No: JVD, Gallop, Murmur Respiratory: Yes: CTA Bilaterally (anteriorly). No: Accessory Muscle Use, Rales , Wheezes Gastrointestinal: Yes: Normal Bowel Sounds, Soft. No: Tenderness Extremities: Warm Edema: No (s/p LLE amputation) Integumentary: No: Jaundice Neurological: alert Psychiatric: Agitated Current Medications Generic Name Dose Route Start Last Admin Trade Name Freq PRN Reason Stop Dose Admin Sodium Chloride 250 mls @ 3,000 mls/hr 02/07/18 15:44 Normal Saline - IV 02/08/18 15:44 PRN PRN Hypotension during Dialysis Insulin Aspart 1 vial 02/07/18 22:00 02/08/18 23:20 Novolog Vial Sliding Scale - SQ Not Given HS PATO Protocol Insulin Aspart 1 vial 02/08/18 07:00 02/09/18 06:17 Novolog Vial Sliding Scale - SQ Not Given TIDAC [facility] Protocol Levetiracetam 250 mg 02/06/18 22:00 02/09/18 09:01 Keppra Injection - IVPB 250 mg BID PATO Administration Pantoprazole Sodium 40 mg 02/07/18 10:00 02/09/18 09:01 Protonix Iv IVPUSH 40 mg DAILY PATO Administration Labs: CBC, BMP 02/08/18 05:10 02/08/18 05:10 ecg: sr, lvh with repol changes. similar to ecg from 05/2017 except now twis more pronounced tele: NSR. echo 01/2018: nl lv size. mod reduced LV fn. EF 40%. grade ii diastolic dysfunction. 1+ rve. nl rv fn. 1+ lae. mild-mod mr. mod phtn. rvsp 54 mmhg. a/p: 53 m hx esrd on hd, dm, aka, cva, hld, htn sent from [facility] after fall. fall: -mechanical fall out of bed in pt who [facility] staff reports has often jumped out of bed in the past heart block (AV block): -episodes of Mobitz 1 second-degree AVB on tele, with episodes of 2:1 likely due to the same etiology (i.e. typically benign). per d/w dr moreno, pt noted to be hypoxic during these episodes. he is also presently obtunded, s/p ativan doses--likely high vagal tone -this would not be indication for PPM -cont tele to r/o high-grade AVB - 02/07 today with recurrent episode of altered mental status, bradycardia (up to 4:1 block, see above) in the setting of hypoxia. Discussed with EP. When induced by hypoxia/increased vagal tone tends to be benign with no risk of inducing ventricular arrhythmias or of progressing to asystole. In light of reversible etiology, no indication for ppm treatment. Per discussion with EP, bradycardia (even if he were to have more prolonged pauses) is not a cause of hypoxia. Therefore, the hypoxia is inducing the bradycardia and not the other way around. Recommend close monitoring of O2 status, tx of boo etc.. discussed with pmd/pulm/critical care. - 02/08: O2 sats improving. s/p HD today. last episode of hypoxia/boo induced bradycardia/Mobitz occurred last night. No change in mgm't. -02/09: nsr on tele, no karolina/avb. Ongoing optimization of oxygenation and boo per pulm/pmd. - lyte repletion prn NSTEMI/hl/cardiomyopathy: -trop initially 0.6--flat trend (0.4-0.6). no ischemic ECG changes, no CV sxs. -likely type II [place] (? related to bp changes at time of fall, ? other) -ecg similar to prior, possible lvh pattern -02/07 Echo with systolic dysfunction,EF 40% (no rwma described, global?). Would repeat/assess for improvement as outpatient once acute issues resolve. Stress testing can be electively considered later, to risk stratify at discretion of outpatient MD (i.e. ? underlying chronic, stable CAD) - resume asa, statin when safe per gi. esrd: -hd per renal, no signs vol overload presently htn: -bp controlled off anti-hypertensives. hematemesis: -plans per critical care +/- GI
--- NOTE | 2018-02-09 11:32 | PN ---
Progress Note (short form) - Note Progress Note: no distress was on CPAP last night Vital Signs - 24 hr 02/08/18 02/08/18 02/08/18 11:55 12:00 12:25 Temperature Pulse Rate 84 81 82 Respiratory 17 19 18 Rate Blood Pressure 112/71 112/70 112/70 O2 Sat by Pulse Oximetry (%) 02/08/18 02/08/18 02/08/18 12:55 13:14 14:00 Temperature Pulse Rate 79 80 81 Respiratory 18 20 16 Rate Blood Pressure 110/74 104/69 114/69 O2 Sat by Pulse Oximetry (%) 02/08/18 02/08/18 02/09/18 16:00 22:00 02:00 Temperature 98.2 F 98.1 F Pulse Rate 84 85 84 Respiratory 15 18 20 Rate Blood Pressure 107/72 109/75 112/75 O2 Sat by Pulse 100 Oximetry (%) 02/09/18 02/09/18 06:00 10:00 Temperature Pulse Rate 82 Respiratory 20 Rate Blood Pressure 112/71 O2 Sat by Pulse 100 Oximetry (%) Current Medications Generic Name Dose Route Start Last Admin Trade Name Freq PRN Reason Stop Dose Admin Sodium Chloride 250 mls @ 3,000 mls/hr 02/07/18 15:44 Normal Saline - IV 02/08/18 15:44 PRN PRN Hypotension during Dialysis Insulin Aspart 1 vial 02/07/18 22:00 02/08/18 23:20 Novolog Vial Sliding Scale - SQ Not Given HS [facility] Protocol Insulin Aspart 1 vial 02/08/18 07:00 02/09/18 06:17 Novolog Vial Sliding Scale - SQ Not Given TIDAC [facility] Protocol Levetiracetam 250 mg 02/06/18 22:00 02/09/18 09:01 Keppra Injection - IVPB 250 mg BID PATO Administration Pantoprazole Sodium 40 mg 02/07/18 10:00 02/09/18 09:01 Protonix Iv IVPUSH 40 mg DAILY PATO Administration Laboratory Results - last 24 hr 02/08/18 02/08/18 02/08/18 12:13 12:33 18:21 POC Glucometer 169.93325 258.54417 110 02/08/18 02/09/18 23:18 05:46 POC Glucometer 131 97 S1 S2 RRR Lungs decreased Abd- soft, NT No edema AKA PLAN -- continue with meds -- change keppra to PO -- protonix to PO -- dc to [facility] today-- will need CPAP-- [facility] made aware Problem List - Problems (1) Fall Code(s): W19.XXXA - UNSPECIFIED FALL, INITIAL ENCOUNTER (2) ESRD (end stage renal disease) on dialysis Code(s): N18.6 - END STAGE RENAL DISEASE; Z99.2 - DEPENDENCE ON RENAL DIALYSIS (3) Seizures Code(s): R56.9 - UNSPECIFIED CONVULSIONS (4) Abnormal EKG Code(s): R94.31 - ABNORMAL ELECTROCARDIOGRAM [ECG] [EKG] (5) Coffee ground vomiting Code(s): K92.0 - HEMATEMESIS (6) Elevated troponin Code(s): R74.8 - ABNORMAL LEVELS OF OTHER SERUM ENZYMES
--- NOTE | 2018-02-09 14:11 | PN ---
Progress Note, Physician History of Present Illness: Pt seen and examined at bedside. He appears comfortable. - Objective Vital Signs: Vital Signs Temperature 98.1 F 02/09/18 02:00 Pulse Rate 82 02/09/18 06:00 Respiratory Rate 20 02/09/18 06:00 Blood Pressure 112/71 02/09/18 06:00 O2 Sat by Pulse Oximetry (%) 100 02/09/18 10:00 Constitutional: Yes: Calm Eyes: Yes: Conjunctiva Clear HENT: Yes: Atraumatic Cardiovascular: Yes: S1, S2 Respiratory: Yes: CTA Bilaterally Gastrointestinal: Yes: Soft Genitourinary: Yes: Incontinence Edema: No Labs: CBC, BMP 02/08/18 05:10 02/08/18 05:10 Problem List - Problems (1) ESRD (end stage renal disease) on dialysis Code(s): N18.6 - END STAGE RENAL DISEASE; Z99.2 - DEPENDENCE ON RENAL DIALYSIS (2) Seizures Code(s): R56.9 - UNSPECIFIED CONVULSIONS Assessment/Plan Impression 1. ESRD 2. seizure 3. coffee ground emesis 4. lactic acidosis 5. altered mental status Plan - pt tolerated HD yesterday - he will likely be discharged today - informed HD unit that he is leaving today - pt dialyzed Tuesday and Tuesday, next HD will be on Sat and that will get him back on his schedule - called HD unit, pt on 3:30 2 k bath left arm aav fistula aranesp 25 on Saturdays, venofer 50 weekly TTS schedule
[2018-02-09 14:19] LABS: HBSAG SCREEN Negative (Negative); HEP A AB, IGM Negative (Negative); HEP B CORE AB, TOT Negative (Negative)
[2018-02-09] MEDS ORDERED: levETIRAcetam 250 MG TABLET (FP) PO SCH (22:00)
[2018-02-10] MEDS ORDERED: PANTOPRAZOLE 40 MG TABLET (FP) PO SCH (10:00)
[2018-02-11] MEDS ORDERED: ERGOCALCIFEROL (VITAMIN D2) 50,000 UNIT CAPSULE (FP) PO SCH (10:00)
== END 2018-02-09 13:56 | DRG 100 ==
LOC: JER 18:36 → INTOOBSV 02-04 00:44 → JERBED 02-04 00:44 → UNDOADMIN 02-04 00:55 → JERBED 02-04 00:55 → J4W 02-04 18:35 → JICU 02-05 16:44 → OBSVTOIN 02-06 12:33 → J4W 02-08 17:00
PROVIDERS: ADMIT Internal Medicine; ATTEND Internal Medicine
PROC: 5A1D70Z Performance of Urinary Filtration, Intermittent, Less than 6 Hours Per Day (ICD-10-PCS; principal; 2018-02-06)
DX: R56.9 Unspecified convulsions (principal); N18.6 End stage renal disease; I21.A1 Myocardial infarction type 2; K92.0 Hematemesis; I69.351 Hemiplegia and hemiparesis following cerebral infarction affecting right dominant side; I13.2 Hypertensive heart and chronic kidney disease with heart failure and with stage 5 chronic kidney disease, or end stage renal disease; I50.22 Chronic systolic (congestive) heart failure; E87.2 Acidosis; I42.9 Cardiomyopathy, unspecified; F32.9 Major depressive disorder, single episode, unspecified; E11.22 Type 2 diabetes mellitus with diabetic chronic kidney disease; Z99.2 Dependence on renal dialysis; M54.2 Cervicalgia; W06.XXXA Fall from bed, initial encounter; Y93.89 Activity, other specified; Y92.129 Unspecified place in nursing home as the place of occurrence of the external cause; Y99.8 Other external cause status; D64.9 Anemia, unspecified; E78.5 Hyperlipidemia, unspecified; Z89.612 Acquired absence of left leg above knee; Z79.4 Long term (current) use of insulin; Z66 Do not resuscitate; F03.90 Unspecified dementia, unspecified severity, without behavioral disturbance, psychotic disturbance, mood disturbance, and anxiety; F10.10 Alcohol abuse, uncomplicated; I44.1 Atrioventricular block, second degree; K59.00 Constipation, unspecified; R00.1 Bradycardia, unspecified; G47.33 Obstructive sleep apnea (adult) (pediatric); R09.02 Hypoxemia
CPT/HCPCS: 36415; 36600; 70450-TC; 71045-TC-FY; 72125-TC; 74018-TC-FY; 80053; 80307; 81003; 81015; 82009; 82140; 82272; 82550; 82553; 82803; 82962; 83605; 83735; 84100; 84484; 85025; 85027; 86704; 86706; 86708; 86900; 86922; 87040; 87340; 87350; 93005; 93010; 93306-TC; 94660; 99284-25; G0378; G0480